=== PATIENT | female | born 1945 | race Caucasian/White ===

== ENCOUNTER 2017-07-07 09:01 | Emergency (ER) | payer BC ==
--- NOTE | 2017-07-07 09:31 | ED Physician Documentation ---
History of Present Illness - Stated complaint Stated Complaint: CAN'T SWALLOW, LUMP/BRUISE ON NECK,R CHEST SORE - Chief complaint Chief Complaint: Heent - History obtained from History obtained from: Patient, Family - History of Present Illness Timing: How many days ago (3) - Additonal information Additional information: 71 y/o female in her usual good state of health has developed some trouble swallowing with pain low in the neck 3 days ago. She noted a swelling in her neck/anterior chest yesterday and this is smaller today and there is bruising present in the skin. She has no history of trauma. She denies fever cough or shortness of breath. She did have a headache the day prior to the onset of symptoms but she did not have to take her migraine medication. She has been able to swallow water but she did not take her pills and has not eaten food in the past 2 days. It hurts to swallow food. She is able to move her arms without causing pain but it hurts in her chest to roll over in bed. Review of Systems Constitutional: denies: Fever, Chills, Myalgias, Fatigue, Weight Loss, Sweats Eyes: denies: Decreased vision Ears: denies: Ear pain Nose: denies: Rhinorrhea / runny nose, Congestion Throat: reports: Sore throat. denies: Dental pain / toothache, Oral lesions / sores Cardiac: reports: Chest pain / pressure. denies: Palpitations, Pedal edema, Calf pain Respiratory: denies: Dyspnea, Cough, Wheezing GI: denies: Abdominal Pain, Abdominal Swelling, Nausea, Vomiting : denies: Dysuria, Frequency Skin: denies: Rash, Lesions Musculoskeletal: denies: Neck pain, Back pain, Extremity pain, Joint pain, Extremity swelling, Joint swelling Neurologic: reports: Headache. denies: Generalized weakness, Focal weakness, Numbness, Difficulty speaking, Confused, Altered mental status, Head injury, LOC Psychiatric: denies: Depressed PD PAST MEDICAL HISTORY - Past Surgical History Past Surgical History: Yes General: Cholecystectomy, Appendectomy, Bowel surgery /HOME HEALTH LVN: Hysterectomy - Present Medications Home Medications: Ambulatory Orders Medication Instructions Recorded Confirmed Rizatriptan Benzoate [Maxalt] 5 mg PO DAILY PRN 07/07/17 07/07/17 - Allergies Allergies/Adverse Reactions: Allergies Allergy/AdvReac Type Severity Reaction Status Date / Time No Known Drug Allergies Allergy Verified 07/07/17 09:10 - Social History Does the pt smoke?: No Smoking Status: Never smoker Does the pt drink ETOH?: Yes - Immunizations Immunizations are current?: Yes - POLST Patient has POLST: No PD ED PE NORMAL - Vitals Vital signs reviewed: Yes (hypertensive ) - General General: Alert and oriented X 3, No acute distress, Well developed/nourished - HEENT HEENT: Atraumatic, PERRL, EOMI, Ears normal, Moist mucous membranes, Pharynx benign, Dentition benign - Neck Neck: Supple, no meningeal sign, No bony TTP, No adenopathy, Other (There is a palpable swelling to the right neck over the thyroid on the right and extending into the chest. There is ecchymosis present from the thyroid to just below the clavicle medially. There is no tenderness to the anterior chest wall) - Cardiac Cardiac: RRR, No murmur - Respiratory Respiratory: No respiratory distress, Clear bilaterally - Abdomen Abdomen: Soft, Non tender, No organomegaly - Back Back: No CVA TTP, No spinal TTP - Derm Derm: Normal color, No rash - Extremities Extremities: No deformity, No edema - Neuro Neuro: Alert and oriented X 3, No motor deficit, No sensory deficit, Normal speech - Psych Psych: Normal mood, Normal affect Results - Vitals Vitals: Vital Signs - 24 hr 07/07/17 07/07/17 09:04 14:14 Temperature 36.4 C L Heart Rate 84 87 Respiratory 16 16 Rate Blood Pressure 164/89 H 142/87 H O2 Saturation 96 100 Oxygen O2 Source Room air - EKG (time done) 1000 Rate: Rate (enter#) (71) Rhythm: NSR, LAE Compare to prior EKG: Unchanged from prior EKG (04-19-16) Computer interpretation: Agree with computer - Labs Labs: Laboratory Tests 07/07/17 07/07/17 07/07/17 09:25 09:25 09:25 WBC RBC Hgb Hct MCV MCH MCHC RDW Plt Count MPV Neut # Lymph # Sac # Eos # Baso # Absolute Nucleated RBC Nucleated RBCs PT 12.6 INR 1.1 APTT 29.6 Sodium 138 Potassium 3.8 Chloride 108 Carbon Dioxide 22 Anion Gap 8.0 BUN 16 Creatinine 0.7 Estimated GFR (MDRD) 82 L Glucose 107 H Calcium 10.2 Total Bilirubin 1.1 H AST 26 ALT 26 Alkaline Phosphatase 93 Troponin I 0.04 Total Protein 7.1 Albumin 4.7 Globulin 2.4 Albumin/Globulin Ratio 2.0 Lipase 15 L Urine Color Urine Clarity Urine pH Ur Specific [place] Urine Protein Urine Glucose (UA) Urine Ketones Urine Occult Blood Urine Nitrite Urine Bilirubin Urine Urobilinogen Ur Leukocyte Esterase Ur Microscopic Review Urine Culture Comments 07/07/17 07/07/17 09:36 10:10 WBC 7.5 RBC 4.85 Hgb 13.9 Hct 41.2 MCV 84.9 MCH 28.6 MCHC 33.7 RDW 13.6 Plt Count 180 MPV 7.8 L Neut # 6.2 Lymph # 0.9 L Sac # 0.3 Eos # 0.1 Baso # 0.0 Absolute Nucleated RBC 0.00 Nucleated RBCs 0.0 PT INR APTT Sodium Potassium Chloride Carbon Dioxide Anion Gap BUN Creatinine Estimated GFR (MDRD) Glucose Calcium Total Bilirubin AST ALT Alkaline Phosphatase Troponin I Total Protein Albumin Globulin Albumin/Globulin Ratio Lipase Urine Color YELLOW Urine Clarity CLEAR Urine pH 5.5 Ur Specific [place] >=1.030 H Urine Protein NEGATIVE Urine Glucose (UA) NEGATIVE Urine Ketones 40 H Urine Occult Blood TRACE-INTA Urine Nitrite NEGATIVE Urine Bilirubin NEGATIVE Urine Urobilinogen 0.2 (NORMAL) Ur Leukocyte Esterase NEGATIVE Ur Microscopic Review NOT INDICATED Urine Culture Comments NOT INDICATED - Rads (name of study) CT chest with Radiology: Prelim report reviewed (Impression: 1. Mild right neck soft tissue thickening in the region of the right sternocleidomastoid muscle and right visceral space.Given patient's history of bruising, intramuscular hematoma is a possibility. However, recommend further evaluation with neck MRI as underlying mass is possible.), EMP read indepedently, See rad report CT neck with Radiology: Prelim report reviewed (Impression: 1. Ovoid poorly enhancing hypodense nodular soft tissue centered in the right tracheoesophageal groove posterior to otherwise normal-appearing right thyroid lobe measures 2.0 x 2.5 x 3.1 cm. Differential considerations include abnormal paraesophageal node versus atypical neurogenic tumor. Complicated diverticulum arising from the esophagus cannot be completely excluded. Hematoma is unusual but cannot be completely excluded. Parathyroid adenoma considered less likely given the lack of enhancement. Fat plane between the lesion and the thyroid gland as well as mass-effect on the posterior contour of the right thyroid lobe suggests against intrinsic thyroid lesion. Lesion appears separate from the carotid sheath laterally. Consider MRI of the soft tissue neck without and with contrast to further evaluate as clinically indicated.2. Neck soft tissue examination appear otherwise unremarkable.), EMP read indepedently, See rad report PD MEDICAL DECISION MAKING - ED course Complexity details: reviewed old records, reviewed results, re-evaluated patient , considered differential, d/w patient, d/w family ED course: 71-year-old previously well female with 3 day history of neck pain and difficulty swallowing has what appears to be a fleshy mass in the neck posterior to the thyroid and butting up against the esophagus. There is mass- effect associated with this there is no current bleeding or enhancement. The patient has a history of this mass in the neck being larger then deflating and now she has some ecchymosis associated. I suspect an atypical hematoma versus tumor. Here in the emergency department the patient is hydrated she is given 10 mg of dexamethasone intravenously and she will have follow-up with her primary for further evaluation to consider use of MR with and without contrast. The radiologist Dr. Dong called back with further thoughts with worries about ruptured parathyroid adenoma and he recommends a careful watch on her Ca++ . Departure - Departure Disposition: 01 Home, Self Care Clinical Impression: Nontraumatic hematoma of soft tissue Condition: Stable Instructions: ED Hematoma Follow-Up: Emili Sherman PA [Primary Care Provider] - Comments: Today it appears there is a mass in your neck and we were not able to specifically identify what this is from. You will need further imaging and follow-up MRI may be needed. If this is simply a hematoma the mass should shrink and resolve. Discharge Date/Time: 07/07/17 14:17
[2017-07-07 09:45] LABS: BASOPHILS % (AUTO) 0.4 %; EOSINOPHILS # (AUTO) 0.1 10^3/uL (0.0-0.7); EOSINOPHILS % (AUTO) 0.7 %; HCT - HEMATOCRIT 41.2 % (37.0-47.0); HGB - HEMOGLOBIN 13.9 g/dL (12.0-16.0); LYMPHOCYTES # (AUTO) 0.9 10^3/uL (1.5-3.5); LYMPHOCYTES % (AUTO) 11.9 %; MEAN CORPUSCULAR HEMOGLOBIN 28.6 pg (27.0-31.0); MEAN CORPUSCULAR HGB CONC 33.7 g/dL (32.0-36.0); MEAN CORPUSCULAR VOLUME 84.9 fL (81.0-99.0); MEAN PLATELET VOLUME 7.8 fL (7.9-10.8); MONOCYTES # (AUTO) 0.3 10^3/uL (0.0-1.0); MONOCYTES % (AUTO) 4.7 %; NEUTROPHILS # (AUTO) 6.2 10^3/uL (1.5-6.6); NEUTROPHILS % (AUTO) 82.3 %; RED BLOOD COUNT 4.85 10^6/uL (4.20-5.40); RED CELL DISTRIBUTION WIDTH 13.6 % (12.0-15.0); UNCORRECTED WHITE BLOOD COUNT 7.5 x10^3/uL; WHITE BLOOD COUNT 7.5 x10^3/uL (4.8-10.8)
[2017-07-07 09:49] LABS: INR 1.1 (0.8-1.2); PT - PROTHROMBIN TIME 12.6 secs (9.9-12.6)
[2017-07-07 09:56] LABS: BILIRUBIN,TOTAL 1.1 mg/dL (0.2-1.0); CALCIUM 10.2 mg/dL (8.5-10.3); CREATININE 0.7 mg/dL (0.4-1.0); POTASSIUM 3.8 mmol/L (3.5-5.0); TOTAL PROTEIN 7.1 g/dL (6.7-8.2)
[2017-07-07 09:57] LABS: PARTIAL THROMBOPLASTIN TIME 29.6 secs (24.9-33.3)
[2017-07-07 10:18] LABS: PH,URINE 5.5 PH (5.0-7.5)
[2017-07-07] MEDS ORDERED: IOPAMIDOL-300 100 ML VIAL IVP ONE ×2 (10:30→13:00)
[2017-07-07] MEDS: IOPAMIDOL-300 100 ML VIAL IVP ONE ×2 (10:38→12:51)
[2017-07-07 10:45] LABS: BILIRUBIN,URINE NEGATIVE (NEGATIVE); UA CHARGE (STRIP ONLY) YES; UR CULTURE IF IND NOT INDICATED
--- NOTE | 2017-07-07 12:09 | CT Report ---
EXAM: CT CHEST EXAM DATE: 07/07/2017 10:39 AM. CLINICAL HISTORY: Mass/bruising to the right mediastinal area. COMPARISONS: Correlation made with chest radiograph of 04/09/2014. Limited comparison made with abdom en and pelvis CT of 09/22/2014. TECHNIQUE: Routine helical CT imaging was performed through the chest. IV contrast: 80 mL Isovue 300. Reconstructions: Coronal and sagittal. In accordance with CT protocol optimization, one or more of the following dose reduction techniques w ere utilized for this exam: automated exposure control, adjustment of mA and/or KV based on patient s ize, or use of iterative reconstructive technique. FINDINGS: Lungs/Pleura: Minimal bilateral dependent atelectasis. No pleural effusion or pneumothorax. Mediastinum: Normal heart size. No pericardial effusion. No thoracic lymphadenopathy. Bilateral calcified subglandular breast implants. Bones: Severe degenerative disk disease T11-T12. Mild levocurvature of the upper thoracic spine and d extrocurvature of the lower thoracic spine. Visualized Abdomen: Mild diffuse hepatic steatosis. Other: Mild soft tissue thickening along the right neck in the region of the right sternocleidomastoi d muscle and right visceral space. The trachea is widely patent. IMPRESSION: 1. Mild right neck soft tissue thickening in the region of the right sternocleidomastoid muscle and r ight visceral space. Given patient's history of bruising, intramuscular hematoma is a possibility. Ho wever, recommend further evaluation with neck MRI as underlying mass is possible. Findings were discussed with Dr. Damon Powell by Dr. Palma Phillip at 1150 on 07/07/2017. [facility] Referring Provider Line: [phone] SITE ID: [id number]
[2017-07-07] MEDS ORDERED: SODIUM CHLORIDE 0.9% 1,000 ML IV ONE (12:39)
[2017-07-07] MEDS ORDERED: DEXAMETHASONE 10 MG/ML VIAL IVP STA (13:27)
--- NOTE | 2017-07-07 13:29 | CT Report ---
EXAM: CT SOFT TISSUE NECK EXAM DATE: 07/07/2017 12:40 PM. HISTORY: Soft tissue mass, neck Ecchymosis COMPARISONS: CT chest 07/07/2017. TECHNIQUE: Routine soft tissue neck CT protocol. IV contrast: 80 cc Isovue-370 IV. Reconstructions: C oronal and sagittal. In accordance with CT protocol optimization, one or more of the following dose reduction techniques w ere utilized for this exam: automated exposure control, adjustment of mA and/or KV based on patient s ize, or use of iterative reconstructive technique. FINDINGS: There is an ovoid, poorly enhancing hypodense (60 Hounsfield unit) soft tissue lesion centered in the right tracheoesophageal groove measuring 2.0 x 2.5 x 3.1 cm. Clear fat plane seen between the thyroi d gland anteriorly and carotid space laterally. Lack of clear fat plane between the lesion and the es ophagus medially. There is no mass effect on the esophagus. Visualized intracranial contents appear unremarkable. No midline shift, hydrocephalus or abnormal ext ra-axial collections. Limited evaluation of the arterial and dural venous sinus structures are unrema rkable. Infratemporal fossa, c2 tactical analysis technician space and parapharyngeal space appear unremarkable. Nasopharyngeal, h ypopharyngeal and oropharyngeal mucosa appear unremarkable. Larynx and hypopharynx appear unremarkabl e. Multilevel degenerative changes of the cervical spine with grade 1 anterolisthesis of C4 on C5, moder ate degenerative changes and disk space narrowing at C5-C6. No suspicious lytic or sclerotic osseous lesions. Alignment of the cervical spine and visualized thoracic spine appear unremarkable. IMPRESSION: 1. Ovoid poorly enhancing hypodense nodular soft tissue centered in the right tracheoesophageal groov e posterior to otherwise normal appearing right thyroid lobe measures 2.0 x 2.5 x 3.1 cm. Differentia l consideration includes abnormal paraesophageal node versus atypical neurogenic tumor. Complicated d iverticulum arising from the esophagus cannot be completely excluded. Hematoma is unusual but cannot be completely excluded. Parathyroid adenoma considered less likely given the lack of enhancement. Fat plane between the lesion and the thyroid gland as well as mass effect on the posterior contour of th e right thyroid lobe suggests against intrinsic thyroid lesion. Lesion appears separate from the dalal tid sheath laterally. Consider MRI of the soft tissue neck without and with contrast to further evalu ate as clinically indicated. 2. Neck soft tissue examination appear otherwise unremarkable. Findings communicated to Dr. Powell at 1325 hrs. 07/07/2017 [facility] The above findings were discussed with Dr. Powell by Dr. Agusto Dong at 13:25 hrs on 07/07/17. Referring Provider Line: [phone] SITE ID: [id number]
[2017-07-07] MEDS ORDERED: DEXAMETHASONE 10 MG/ML VIAL ONE (13:53)
[2017-07-07 14:15] VITALS: BP 142/87
== END 2017-07-07 14:17 | disposition home or self-care (01) ==
LOC: ED 09:01
DX: M79.81 Nontraumatic hematoma of soft tissue (principal)
CPT/HCPCS: 36415; 70491; 71260; 80053; 81003; 83690; 84484; 85025; 85610; 85730; 93005; 96374; 99283; 99284; Q9967; 81001; 87086

== ENCOUNTER 2017-07-17 10:00 | Outpatient (CLI) | payer BC, MEDICARE ==
[~2017-07-17 10:00] MED LIST: GADOBUTROL 7.5 MMOL/7.5 ML VIAL ONE
[2017-07-17] MEDS ORDERED: GADOBUTROL 7.5 MMOL/7.5 ML VIAL IVP ONE (10:57)
--- NOTE | 2017-07-17 13:23 | MRI Report ---
EXAM: MRI SOFT TISSUE NECK EXAM DATE: 07/17/2017 11:15 AM. CLINICAL HISTORY: 71-year-old with soft tissue neck mass as well as neck ecchymosis COMPARISON: Same day MRA neck 07/17/2017: CT neck 07/07/2017. TECHNIQUE: Multiplanar, multisequence T1-weighted and fluid-sensitive MR sequences of the neck soft t issues were performed. Other: None. IV Contrast: 7.5 cc GADAVIST. FINDINGS: Visualized Intracranial Contents: Unremarkable. Orbits: Normal. Sinuses: Visualized paranasal sinuses and mastoid air cells are clear. Pharynx : Nasopharyngeal mucosa and parapharyngeal spaces are unremarkable. There is a T2 hyperintense lesion seen within the right tonsillar pillar measuring 5 x 5 x 5 mm (CC b y TR by AP) without enhancement (series 1001 image 33). Finding likely represents cyst. The oropharyn x is otherwise normal. The hypopharynx and retropharynx appear normal. Retropharyngeal space is normal and symmetric. Airway is widely patent. Larynx: Larynx and supraglottic airway are patent without mass lesion. True vocal cords are symmetric . Oral cavity and tongue: The base of tongue is symmetric without mass lesion. Oral cavity is unremarka ble. Parotid and Submandibular Glands: Normal. Thyroid: Posterior to and abutting the right thyroid lobe is a soft tissue mass that currently measures 1.4 x 1.4 x 1.4 cm (CC by TR by AP). The soft tissue mass demonstrates predominantly intrinsic T1 signal hy pointensity within area of T1 signal hyperintensity within the right aspect of the lesion. On postcon trast sequence the lesion demonstrates heterogenous enhancement greater than the thyroid. On T2 and STIR sequence the lesion demonstrates mixed signal hyperintensity and hypointensity. The an terior aspect of the lesion demonstrates lobulated signal hyperintensity on the inferior aspect demon strates signal hypointensity. There is no definitive fat plane seen between the mass and the thyroid appears to be a definitive fat plane between the mass and the esophagus. The outer mucosal layer of the esophagus demonstrates unif orm T2 signal hypointensity. Within the posterior aspect of the left thyroid lobe is a 0.7 x 0.7 x 0.7 (cc by TR by AP thyroid lob e lesion that demonstrates enhancement similar to CT 07/07/2017. Lymph Nodes: No enlarged lymph nodes are identified in the cervical, supraclavicular, and visualized superior mediastinal regions. Soft tissues: Soft tissues are unremarkable. No mass lesion or abnormal enhancement. Vascular Structures: Unremarkable. Lung: Clear. Bones: No evidence of acute fracture or malalignment. There are mild degenerative changes. Other: None. IMPRESSION: 1. Posterior to and abutting the right thyroid lobe is a soft tissue mass that currently measures 1.4 x 1.4 x 1.4 cm (CC by TR by AP) unchanged in size from CT 07/07/2017. The mass demonstrates heteroge nous enhancement as well as heterogenous T1 and T2 signal intensity. Differential includes parathyroi d adenoma, hematoma (either into a parathyroid adenoma or from trauma), or atypical neurogenic tumor. 2. Small enhancing lesion within the left thyroid lobe measuring up to 7 mm unchanged from 07/07/2017. [facility] Referring Provider Line: [phone] SITE ID: [id number]
--- NOTE | 2017-07-17 14:03 | MRI Report ---
EXAM: MR ANGIOGRAM NECK EXAM DATE: 07/17/2017 11:06 AM. CLINICAL HISTORY: Neck mass. COMPARISON: No prior neck MRA. TECHNIQUE: Multiplanar, multisequence MRA sequences of the neck were performed. Other: None. Post-pro cessing: Multiplanar 3D MIP reconstructions. IV Contrast: Without and with 7.5 mm Gadavist. Evaluati on of arterial stenosis is based on a NASCET method of measurement. FINDINGS: The top of the aortic arch and the origins of the great vessels are patent. No evidence for acute abn ormality or focal flow limiting stenosis of the proximal segments of the subclavian arteries. The cervical internal carotid arteries are tortuous bilaterally. The mid segments of both cervical in ternal carotid arteries have a mildly nodular, irregular and possibly slightly beaded contour. This i s not associated with hemodynamically significant stenosis, focal filling defect or evidence for elev ated dissection flap. Unremarkable-appearing cervical carotid bifurcations. No other evidence for significant stenosis or a cute abnormality. No acute abnormality or focal flow limiting stenosis of the well-developed cervical vertebral arterie s. Minimal contour irregularity of the mid and distal vertebral artery V3 segments, no flow-limiting stenosis, possibly imaging artifact or mild atherosclerotic change. No evidence for high flow vascular malformation or aneurysm in the region of the thyroid gland or in the region of the mass that is separately reported in the region of the thyroid. IMPRESSION: 1. No evidence for acute abnormality or significant stenosis of the cervical vertebral or carotid art eries. 2. Mild contour irregularity of both cervical internal carotid arteries, differential includes mild s egmental atherosclerotic disease versus fibromuscular dysplasia. [facility] Referring Provider Line: [phone] SITE ID: [id number]
== END 2017-07-17 10:01 | disposition home or self-care (01) ==
LOC: DI 10:00
PROVIDERS: ATTEND Physician Assistant
DX: R22.1 Localized swelling, mass and lump, neck (principal); E07.89 Other specified disorders of thyroid; R93.1 Abnormal findings on diagnostic imaging of heart and coronary circulation
CPT/HCPCS: 70543; 70549; A9585

== ENCOUNTER 2017-07-18 10:42 | Outpatient (CLI) | payer BC ==
--- NOTE | 2017-07-18 18:50 | Ultrasound Report ---
ABDOMINAL AORTA ULTRASOUND: 07/18/2017 HISTORY: Palpable aorta. COMPARISON: CT chest 07/07/2017, CT scan abdomen and pelvis 09/22/2014. TECHNIQUE: Real-time scanning by the electrical assembly technician with saved static images reviewed. FINDINGS: Ultrasound measurements of the aorta as follows: Proximal: Sagittal plane 2.3 cm. Mid: Transverse plane 1.7 x 1.8 cm. Distal: Transverse plane 1.8 x 1.7 cm. Normal aortic caliber without identifiable plaque. Iliac arteries: Right transverse plane 1.2 x 1.2 cm, left transverse plane 1.2 x 1.3 cm. IMPRESSION: NO EVIDENCE OF ABDOMINAL AORTIC ANEURYSM BY ULTRASOUND. JOB #: [id number] EXT JOB #:[id number]
== END 2017-07-18 10:43 | disposition home or self-care (01) ==
LOC: DI 10:42
PROVIDERS: ATTEND Physician Assistant
DX: R09.89 Other specified symptoms and signs involving the circulatory and respiratory systems (principal)
CPT/HCPCS: 76706

== ENCOUNTER 2019-11-06 10:59 | Outpatient (CLI) | payer BC ==
[2019-11-06 17:45] LABS: HGB - HEMOGLOBIN 13.9 g/dL (12.0-16.0); MEAN CORPUSCULAR HEMOGLOBIN 28.6 pg (27.0-31.0); MEAN CORPUSCULAR HGB CONC 32.6 g/dL (32.0-36.0); MEAN CORPUSCULAR VOLUME 87.7 fL (81.0-99.0); MEAN PLATELET VOLUME 10.8 fL (7.9-10.8); RED BLOOD COUNT 4.86 10^6/uL (4.20-5.40); RED CELL DISTRIBUTION WIDTH 13.4 % (12.0-15.0); WHITE BLOOD COUNT 5.5 x10^3/uL (4.8-10.8)
[2019-11-06 17:59] LABS: ALBUMIN 4.1 g/dL (3.2-5.5); ALBUMIN/GLOBULIN RATIO 1.6 (1.0-2.2); BILIRUBIN,TOTAL 1.1 mg/dL (0.2-1.0); CALCIUM 10.1 mg/dL (8.5-10.3); CREATININE 0.8 mg/dL (0.4-1.0); TOTAL PROTEIN 6.6 g/dL (6.7-8.2)
== END 2019-11-06 11:00 | disposition home or self-care (01) ==
LOC: LAB.S 10:59
PROVIDERS: ATTEND Dermatology
DX: L30.9 Dermatitis, unspecified (principal); Z51.81 Encounter for therapeutic drug level monitoring; Z79.899 Other long term (current) drug therapy
CPT/HCPCS: 36415; 80053; 85027

== ENCOUNTER 2023-03-22 16:10 | Outpatient (CLI) | payer MEDICARE, OTHER | END 2023-03-22 23:59 | disposition critical access hospital (66) | LOC: EMS 16:10 | DX: R55 Syncope and collapse (principal); S00.81XA Abrasion of other part of head, initial encounter; W18.11XA Fall from or off toilet without subsequent striking against object, initial encounter; Y92.002 Bathroom of unspecified non-institutional (private) residence as the place of occurrence of the external cause | CPT/HCPCS: A0425; A0427 ==

== ENCOUNTER 2023-03-22 16:44 | Inpatient (IN) | payer MEDICARE, OTHER ==
[2023-03-22] MEDS ORDERED: SODIUM CHLORIDE 0.9% 1,000 ML IV STA (16:55)
--- NOTE | 2023-03-22 16:57 | ED Physician Documentation ---
History of Present Illness - Stated complaint Stated Complaint: SYNCOPE/FALL - History obtained from History obtained from: Patient - Additonal information Additional information: 77-year-old woman with bone and joint problems but otherwise medically very healthy. She was feeling kind of weak and dizzy this afternoon and was laying on the couch. She got up because she felt like she needed to have a bowel movement noting she did not have a bowel movement this morning. While she was sitting on the toilet she had a syncopal episode falling forward and hitting her forehead. Also mildly hurt the right knee. She does not have a headache. She is feeling okay right now. No associated chest pain or trouble breathing. PD PAST MEDICAL HISTORY - Past Surgical History Past Surgical History: Yes General: Cholecystectomy, Appendectomy, Bowel surgery /MARKET PRESIDENT: Hysterectomy - Present Medications Home Medications: Ambulatory Orders Medication Instructions Recorded Confirmed Rizatriptan Benzoate [Maxalt] 5 mg PO DAILY PRN 07/07/17 07/07/17 - Allergies Allergies/Adverse Reactions: Allergies Allergy/AdvReac Type Severity Reaction Status Date / Time No Known Drug Allergies Allergy Verified 07/07/17 09:10 - Social History Does the pt smoke?: No Smoking Status: Never smoker Does the pt drink ETOH?: Yes Does the pt have substance abuse?: No - Immunizations Immunizations are current?: Yes - POLST Patient has POLST: No PD ED PE NORMAL - Vitals Vital signs reviewed: Yes - General General: Alert and oriented X 3, No acute distress - HEENT HEENT: Other (Dry mucous membranes, significant bruising right greater than left forehead) - Neck Neck: No bony TTP - Cardiac Cardiac: RRR, No murmur - Respiratory Respiratory: No respiratory distress, Clear bilaterally - Abdomen Abdomen: Non tender, Non distended - Back Back: No CVA TTP, No spinal TTP - Derm Derm: Normal color, Warm and dry - Extremities Extremities: Other (No tenderness or limited range of motion of the right knee.) - Neuro Neuro: Alert and oriented X 3, No motor deficit, No sensory deficit, Normal speech Eye Opening: Spontaneous Motor: Obeys Commands Verbal: Oriented GCS Score: 15 Results - Vitals Vitals: Vital Signs - 24 hr 03/22/23 03/22/23 16:58 18:17 Temperature 36.6 C Heart Rate 74 66 Respiratory 17 17 Rate Blood Pressure 128/49 L 130/104 H O2 Saturation 99 100 Oxygen O2 Source Room air - EKG (time done) 1720 EKG releavant findings:: EKG personally interpreted by author of this note. Relevant findings are: Rate: Rate (enter#) (69) Rhythm: NSR [place]: Normal Intervals: Normal [place] QRS: Normal Ischemia: Normal ST segments 1918 EKG releavant findings:: EKG personally interpreted by author of this note. Relevant findings are: Rate: Rate (enter#) (78) Rhythm: NSR [place]: Normal Intervals: Normal [place] QRS: Normal Ischemia: Normal ST segments - Labs Labs: Laboratory Tests 03/22/23 03/22/23 03/22/23 17:06 17:06 17:16 WBC 6.4 RBC 3.74 L Hgb 10.0 L Hct 31.8 L MCV 85.0 MCH 26.7 L MCHC 31.4 L RDW 14.8 Plt Count 237 MPV 9.4 Neut # (Auto) 5.8 Lymph # (Auto) 0.5 L [place] # (Auto) 0.2 Eos # (Auto) 0.0 Baso # (Auto) 0.0 Absolute Nucleated RBC 0.00 Nucleated RBC % 0.0 Sodium 136 Potassium 3.6 Chloride 106 Carbon Dioxide 21 Anion Gap 9.0 BUN 16 Creatinine 0.7 Estimated GFR (MDRD) 81 L Glucose 151 H POC Whole Bld Glucose 123 H Calcium 10.0 Magnesium 2.0 Total Bilirubin 0.8 AST 22 ALT 14 Alkaline Phosphatase 101 Total Protein 6.9 Albumin 4.0 Globulin 2.9 Albumin/Globulin Ratio 1.4 03/22/23 19:20 WBC RBC Hgb Hct MCV MCH MCHC RDW Plt Count MPV Neut # (Auto) Lymph # (Auto) [place] # (Auto) Eos # (Auto) Baso # (Auto) Absolute Nucleated RBC Nucleated RBC % Sodium Potassium Chloride Carbon Dioxide Anion Gap BUN Creatinine Estimated GFR (MDRD) Glucose POC Whole Bld Glucose 128 H Calcium Magnesium Total Bilirubin AST ALT Alkaline Phosphatase Total Protein Albumin Globulin Albumin/Globulin Ratio - Rads (name of study) CT of the head and C-spine Relevant Findings:: Final report received, EMP independent interpretation of test Three-view x-ray of the right ankle demonstrates a lateral malleolus fracture Relevant Findings:: Final report received, EMP independent interpretation of test Procedures - Splint (location) - Minor rle Splint applied by: Physician Type of splint: Fiberglass, Short leg, Posterior Other: Patient tolerated well, No complications, Neurovascular intact PD Medical Decision Making - ED course ED course: 77-year-old woman had a syncopal episode and fell hitting her head. EKG, CT of the head and neck, and labs were only notable for anemia. This was discussed with the patient and family, she was noted to be anemic perioperatively around a recent right hip replacement so unclear acuity, 3 years ago she was not anemic though. She will follow-up with her doctor to discuss. Prior to discharge she noticed that her ankle was hurting. On examination she has a swollen right ankle that is tender over the lateral but not the medial malleolus. There is no proximal fibular tenderness. Will obtain x-ray. After the x-ray was obtained but just before I was able to give her results she had another syncopal episode in the room. Her friends were in the room and said her eyes rolled back and then she postured and shook a little bit and passed out. I was called into the room by the nurse. At that point she was becoming conscious again. Repeat EKG and blood sugar were done without pertinent positive findings. Given that she has had 2 episodes of syncope today now we will place her in observation. Note that she was not on the monitor when this happened so it is unclear if she had an arrhythmia. sPOKE WITH TELE-HOSPITALIST AT 7:50 FOR OBS Departure - Departure Disposition: ED Place in Observation Clinical Impression: Syncope Qualifiers: Syncope type: unspecified Qualified Code(s): R55 - Syncope and collapse Head injury Qualifiers: Encounter type: initial encounter Qualified Code(s): S09.90XA - Unspecified injury of head, initial encounter Anemia Qualifiers: Anemia type: unspecified type Qualified Code(s): D64.9 - Anemia, unspecified Closed right ankle fracture Qualifiers: Encounter type: initial encounter Qualified Code(s): S82.891A - Other fracture of right lower leg, initial encounter for closed fracture Condition: Serious Record reviewed to determine appropriate education?: Yes Instructions: ED Head Injury Closed, ED Fainting Unkn Cause Comments: You are seen today for an episode of passing out associated with a head injury. No serious findings were identified. CAT scan of the head and neck were normal. EKG unremarkable. We did find that you are anemic which as you mentioned was noted when you had your hip surgery but please follow-up with your primary care physician to discuss. Return for new or worsening symptoms. I do anticipate you will get significant bruising of the face from the injuries.
[2023-03-22 17:10] LABS: BASOPHILS % (AUTO) 0.3 %; EOSINOPHILS % (AUTO) 0.3 %; HCT - HEMATOCRIT 31.8 % (37.0-47.0); LYMPHOCYTES # (AUTO) 0.5 10^3/uL (1.5-3.5); MEAN CORPUSCULAR HEMOGLOBIN 26.7 pg (27.0-31.0); MEAN CORPUSCULAR HGB CONC 31.4 g/dL (32.0-36.0); MEAN PLATELET VOLUME 9.4 fL (7.9-10.8); MONOCYTES # (AUTO) 0.2 10^3/uL (0.0-1.0); MONOCYTES % (AUTO) 2.3 %; NEUTROPHILS # (AUTO) 5.8 10^3/uL (1.5-6.6); NEUTROPHILS % (AUTO) 89.6 %; PLT - PLATELET COUNT 237 10^3/uL (130-450); RED BLOOD COUNT 3.74 10^6/uL (4.20-5.40); RED CELL DISTRIBUTION WIDTH 14.8 % (12.0-15.0); WHITE BLOOD COUNT 6.4 x10^3/uL (4.8-10.8)
[2023-03-22 17:22] LABS: ALBUMIN/GLOBULIN RATIO 1.4 (1.0-2.2); BILIRUBIN,TOTAL 0.8 mg/dL (0.2-1.0); CREATININE 0.7 mg/dL (0.4-1.0); POTASSIUM 3.6 mmol/L (3.5-5.0); TOTAL PROTEIN 6.9 g/dL (6.7-8.2)
--- NOTE | 2023-03-22 18:10 | CT Report ---
PROCEDURE: HEAD WO INDICATIONS: Fall, head injury TECHNIQUE: Noncontrast 4.5 mm thick angled axial sections acquired from the foramen magnum to the vertex. For r adiation dose reduction, the following was used: automated exposure control, adjustment of mA and/or kV according to patient size. COMPARISON: None. FINDINGS: Image quality: Excellent. CSF spaces: Basal cisterns are patent. No extra-axial fluid collections. Ventricles are normal in size and shape. Brain: No midline shift. No intracranial masses or hemorrhage. No area of hypodensity in a vascula r distribution to suggest acute infarction. There is periventricular hypodensity consistent with lunchroom aide jasen microvascular ischemic disease. Age-related parenchymal loss. Skull and face: Calvarium and visualized facial bones are intact, without suspicious lesions. Small right frontal scalp hematoma. Sinuses: Visualized sinuses and mastoids are clear. IMPRESSION: No acute intracranial abnormality. Small right frontal scalp hematoma. Reviewed by: Lan Pedroza MD on 03/22/2023 6:09 PM PDT Approved by: Lan Pedroza MD on 03/22/2023 6:09 PM PDT Station ID: [id number]
--- NOTE | 2023-03-22 18:21 | CT Report ---
PROCEDURE: CERVICAL SPINE WO INDICATIONS: Fall, head injury TECHNIQUE: Noncontrast 3 mm thick sections acquired from the skull base to the T4 level. Sagittal and coronal r eformats were then constructed. For radiation dose reduction, the following was used: automated exp osure control, adjustment of mA and/or kV according to patient size. COMPARISON: None. FINDINGS: Image quality: Excellent. Bones: No fractures or dislocations. Moderate degenerative change in the cervical spine. Visualized superior ribs are intact. Soft tissues: Mucosal thickening at the right sphenoid sinus. Prevertebral soft tissues are normal in thickness. No paravertebral hematomas. No apical pneumothoraces. Bilateral pleural apical scarring . IMPRESSION: No acute osseous abnormality. Reviewed by: Lan Pedroza MD on 03/22/2023 6:20 PM PDT Approved by: Lan Pedroza MD on 03/22/2023 6:20 PM PDT Station ID: [id number]
--- NOTE | 2023-03-22 19:51 | XRAY Report ---
PROCEDURE: Ankle 3 View RT INDICATIONS: ankle inj TECHNIQUE: 3 views of the ankle were acquired. COMPARISON: None. FINDINGS: Bones: Acute mildly displaced fracture of the lateral malleolus with fracture plane at the level of the tibial plafond. No substantial mortise malalignment identified Soft tissues: Probable tibiotalar joint effusion. IMPRESSION: Acute lateral malleolus fracture Reviewed by: Shyam Santo MD on 03/22/2023 7:50 PM PDT Approved by: Shyam Santo MD on 03/22/2023 7:50 PM PDT Station ID: [id number]
--- NOTE | 2023-03-22 20:36 | HISTORY & PHYSICAL EXAMINATION ---
Chief Complaint - Chief Complaint Chief Complaint: syncope History of Present Illness - Admitted From Admitted From:: home - History Obtained From Exam Limitations: telemedicine - History of Present Illness HPI Comment/Other: Ms Tay is a 77 yo F with hx hip and knee replacements, recent R hip revision Feb 18, 2023. Uses walker. No other chronic medical problems, takes low dose ASA twice daily after hip revision, no other home medications. Presents to ER for further evaluation of syncopal episode. Pt reports she felt weak and dizzy this afternoon, went to bathroom for BM, passed out while on the toilet and hit her forehead. Unwitnessed, unsure how long she was unconscious for at that time. She was stuck under the cabinet and had a hard time getting out, which is how she thinks she injured her ankle. While in ER she had an observed episode of syncope, possible seizure, her eyes rolled back, shook, passed out, regained consciousness within a couple of minutes. Patient states she felt completely disoriented afterwards briefly. Currently no complaints except that she is feeling very cold. Denies abd pain, n/v. Noticed a small spot of blood when wiping after BM today, states she was prescribed stool softener post op but just stopped taking it due to runny stools. Denies blood in stool or in toilet bowl. Denies hematuria. She took oxycodone for 2 days post op, never took the tramadol that was prescribed. No alcohol use. 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 denies: Poor appetite - Eyes Eyes: reports: Blurred vision (chronic related to cataract surgery). denies: Spots in vision - Ears, Nose & Throat Ears, Nose & Throat: denies: Nosebleeds - Cardiovascular Cariovascular: reports: Syncope. denies: Palpitations, Chest pain - Respiratory Respiratory: denies: Cough, Sputum production - Gastrointestinal Gastrointestinal: reports: Other (spot of blood with wiping today, stopped stool softeners due to diarrhea) - Genitourinary Genitourinary: denies: Dysuria, Frequency, Hematuria - Integumentary Integumentary: denies: Rash, Pruritis - Neurological Neurological: reports: General weakness. denies: Focal weakness, Headache, Dizziness - Psychiatric Psychiatric: denies: Depression, Anxiety - Hematologic/Lymphatic Hematologic/Lymphatic: reports: Anemia - All Other Systems All Other Systems: reports: Reviewed and negative Prior Level of Functionality: ambulates with walker Exam - Vital Signs Reviewed Vital Signs: Yes Vital Signs: Vital Signs x48h Temp Pulse Resp BP Pulse Ox 03/22/23 18:17 66 17 130/104 H 100 03/22/23 16:58 36.6 C 74 17 128/49 L 99 - Physical Exam General Appearance: positive: No acute distress (appears fatigued, elderly) Eyes Bilateral: positive: Normal inspection ENT: positive: ENT inspection nml Neck: positive: Nml inspection Respiratory: positive: No respiratory distress Cardiovascular: positive: Regular rate & rhythm Skin: positive: Color nml, No rash Extremities: positive: Joint swelling (R ankle splint) Neurologic/Psychiatric: positive: Oriented x3. negative: Mood/affect nml (flat affect) Conclusion/Plan - Lab Results Lab results reviewed: Yes Fish Bones: 03/22/23 17:06 03/22/23 17:06 - Diagnostic Imaging Results Diagnostic Imaging Results: positive: Final report reviewed - EKG Results EKG Interpreted Independently: Yes EKG Comparison: No prior EKG - Other Other Results/Comments: Assessment/Plan: Syncopal episode -First episode at home while on commode, unwitnessed, unknown duration of LOC -Second episode in ER, associated with possible shaking per friend at bedside, ?seizure, unconscious ~1 min -CT head/neck no acute intracranial abnormalities, R forehead hematoma -EKG NSR -air sampling and monitoring -Seizure precautions -Echocardiogram Right lateral malleolus fracture -Splinted by ER provider - rec NWB and outpatient orthopedics follow up -PT/OT consults Anemia, normocytic -Hgb 10 -Pt reports spot of blood with wiping today in setting of constipation, likely hemorrhoids, recently stopped stool softeners -Repeat H&H in a.m. -F/u B12, folate, iron studies Full code - pt would like more information regarding advanced directives/POLST, consult to social work placed DVT ppx: Lovenox sc Telemedicine Consult Details - Provider Location & Consult Time Telemedicine consultation conducted via videoconferencing?: Yes List names and roles of persons who participated in consult:: Arnold Crain MD, patient + patient's friend at bedside Telemedicine provider location:: [place]
[2023-03-22] MEDS ORDERED: SODIUM CHLORIDE FLUSH 0.9% 10 ML SYRINGE IVP PRN (21:04)
[2023-03-22] MEDS ORDERED: ONDANSETRON 4 MG/2 ML VIAL IVP PRN (21:04)
[2023-03-22 21:31] LABS: % IRON SATURATION 12 % (20-50); IRON 31 ug/dL (28-170); TOTAL IRON BINDING CAPACITY 263 ug/dL (250-450); TRANSFERRIN 188 mg/dL (192-382)
[2023-03-22 21:52] LABS: FOLATE 10.82 ng/mL (5.90 - >24.8)
[2023-03-22] MEDS: levETIRAcetam 250 MG TABLET PO SCH (22:58)
[2023-03-22] MEDS: ACETAMINOPHEN 325 MG TABLET PO PRN (23:20)
[2023-03-23] MEDS: SODIUM CHLORIDE FLUSH 0.9% 10 ML SYRINGE IVP SCH ×4 (00:40→20:57)
[2023-03-23 05:57] LABS: BASOPHILS % (AUTO) 0.6 %; EOSINOPHILS % (AUTO) 0.8 %; HCT - HEMATOCRIT 27.6 % (37.0-47.0); HGB - HEMOGLOBIN 8.6 g/dL (12.0-16.0); LYMPHOCYTES % (AUTO) 19.9 %; MEAN CORPUSCULAR HEMOGLOBIN 26.6 pg (27.0-31.0); MEAN CORPUSCULAR HGB CONC 31.2 g/dL (32.0-36.0); MEAN CORPUSCULAR VOLUME 85.4 fL (81.0-99.0); MEAN PLATELET VOLUME 9.9 fL (7.9-10.8); MONOCYTES # (AUTO) 0.4 10^3/uL (0.0-1.0); MONOCYTES % (AUTO) 7.8 %; NEUTROPHILS # (AUTO) 3.6 10^3/uL (1.5-6.6); NEUTROPHILS % (AUTO) 70.7 %; PLT - PLATELET COUNT 199 10^3/uL (130-450); RED BLOOD COUNT 3.23 10^6/uL (4.20-5.40); RED CELL DISTRIBUTION WIDTH 14.9 % (12.0-15.0); WHITE BLOOD COUNT 5.1 x10^3/uL (4.8-10.8)
[2023-03-23 06:04] LABS: CALCIUM 9.7 mg/dL (8.5-10.3); CREATININE 0.6 mg/dL (0.4-1.0); POTASSIUM 3.7 mmol/L (3.5-5.0)
[2023-03-23] MEDS ORDERED: GADOBUTROL 7.5 MMOL/7.5 ML VIAL ONE (07:54)
[2023-03-23 07:57] LABS: BASOPHILS % (AUTO) 0.6 %; EOSINOPHILS # (AUTO) 0.1 10^3/uL (0.0-0.7); EOSINOPHILS % (AUTO) 1.3 %; HCT - HEMATOCRIT 27.7 % (37.0-47.0); HGB - HEMOGLOBIN 8.8 g/dL (12.0-16.0); LYMPHOCYTES # (AUTO) 0.9 10^3/uL (1.5-3.5); LYMPHOCYTES % (AUTO) 16.9 %; MEAN CORPUSCULAR HEMOGLOBIN 26.9 pg (27.0-31.0); MEAN CORPUSCULAR HGB CONC 31.8 g/dL (32.0-36.0); MEAN CORPUSCULAR VOLUME 84.7 fL (81.0-99.0); MEAN PLATELET VOLUME 9.2 fL (7.9-10.8); MONOCYTES # (AUTO) 0.4 10^3/uL (0.0-1.0); MONOCYTES % (AUTO) 7.3 %; NEUTROPHILS % (AUTO) 73.7 %; PLT - PLATELET COUNT 193 10^3/uL (130-450); RED BLOOD COUNT 3.27 10^6/uL (4.20-5.40); RED CELL DISTRIBUTION WIDTH 14.9 % (12.0-15.0); WHITE BLOOD COUNT 5.4 x10^3/uL (4.8-10.8)
[2023-03-23] MEDS: ACETAMINOPHEN 325 MG TABLET PO PRN (08:13)
[2023-03-23 08:37] LABS: INR 1.2 (0.8-1.2); PT - PROTHROMBIN TIME 13.2 secs (9.9-12.6)
[2023-03-23 08:44] LABS: PARTIAL THROMBOPLASTIN TIME 27.1 secs (24.9-33.3)
[2023-03-23] MEDS: levETIRAcetam 250 MG TABLET PO SCH ×2 (08:51→20:57)
[2023-03-23] MEDS: PANTOPRAZOLE 40 MG VIAL IVP SCH ×2 (08:51→20:57)
[2023-03-23] MEDS ORDERED: ENOXAPARIN 40 MG/0.4 ML SYRINGE SUBQ SCH (09:00)
[2023-03-23] MEDS: polyethylene glycoL 3350 17 GM PACKET PO SCH (11:02)
--- NOTE | 2023-03-23 11:45 | PROVIDER PROGRESS NOTE ---
Assessment/Plan - Problem List (1) Syncope Qualifiers: Syncope type: unspecified Qualified Code(s): R55 - Syncope and collapse Assessment/Plan: -First episode at home while on commode, unwitnessed, unknown duration of LOC -Second episode in ER, associated with possible shaking per friend at bedside, ?seizure, unconscious ~1 min -CT head/neck no acute intracranial abnormalities, R forehead hematoma -EKG NSR -monitoring analyst -Seizure precautions -Echocardiogram -MRI with and without contrast of head ordered Possible acute seizure, present on admission -Patient has no history of seizures -Questionable seizure activity while in the emergency room was observed -Patient was started on Keppra dosing -MRI brain seizure protocol ordered -Seizure precautions Right lateral malleolus fracture -Splinted by ER provider - rec NWB and outpatient orthopedics follow up -PT/OT consults Anemia, normocytic -Hgb 10 -Pt reports spot of blood with wiping today in setting of constipation, likely hemorrhoids, recently stopped stool softeners -Repeat H&H in a.m. -F/u B12, folate, iron studies -Iron studies did reveal low saturation. Patient does not know when her previous hemoglobin hematocrit was checked and last was normal in 2017 per records - will evaluate for possible active bleeding. May just be due to hydration given in the ER. - will initiate IV Protonix but patient will have ability to eat -Check serial hemoglobin hematocrit -Guaiac stool Full code - pt would like more information regarding advanced directives/POLST, consult to social work placed - Current Meds Current Meds: Current Medications Generic Name Dose Route Start Last Admin Trade Name Maico PRN Reason Stop Dose Admin Levetiracetam 500 mg 03/22/23 23:00 03/23/23 08:51 Levetiracetam 250 Mg Tablet PO 500 mg BID GURWINDER Administration Pantoprazole Sodium 40 mg 03/23/23 09:00 03/23/23 08:51 Pantoprazole 40 Mg Vial IVP 40 mg BID GURWINDER Administration Polyethylene Glycol 17 gm 03/23/23 11:00 03/23/23 11:02 Polyethylene Glycol 3350 17 Gm Packet PO 17 gm DAILY GURWINDER Administration Sodium Chloride 10 ml 03/23/23 01:00 03/23/23 08:51 Sodium Chloride Flush 0.9% 10 Ml Syringe IVP 10 ml 0100,0900,1700 GURWINDER Administration - Lab Result Fish Bone Diagrams: 03/23/23 07:46 03/23/23 05:20 - Additional Planning My Orders: My Active Orders 03/23/23 Guaiac [OCCULT BLOOD IN PAT. SINGLE] [RAPID] Routine 03/23/23 07:20 BRAIN W/WO [MRI] Routine 03/23/23 07:23 SCDs [RC] QSHIFT 03/23/23 07:24 Miscellaenous Nursing Order [RC] ONCE 03/23/23 09:00 Pantoprazole [Protonix] 40 mg IVP BID 03/23/23 11:00 polyethylene glycoL 3350 [Miralax] 17 gm PO DAILY 03/23/23 11:18 Acetaminophen [Tylenol] 1,000 mg PO Q4HR PRN 03/23/23 12:00 HEMOGLOBIN AND HEMATOCRIT [HEME] Timed 03/23/23 13:30 CBC - COMP BLD CT W/AUTO DIFF [HEME] Q6H 03/23/23 19:30 CBC - COMP BLD CT W/AUTO DIFF [HEME] Q6H 03/24/23 01:30 CBC - COMP BLD CT W/AUTO DIFF [HEME] Q6H Subjective - Subjective Patient Reports: Other (Patient this morning is feeling fine. Denies any lightheadedness. She notes she was feeling fine all day long until she went to use the toilet urinated and then was trying to have a bowel movement and felt lightheaded and passed out. She does not recall for how long. She did have her phone which) Objective Vital Signs: Vital Signs - 24 hr 03/22/23 03/22/23 03/22/23 16:58 18:17 21:00 Temperature 36.6 C 36.7 C Heart Rate 74 66 67 Heart Rate [ Brachial] Heart Rate [ Monitoring electrodes] Respiratory 17 17 19 Rate Blood Pressure 128/49 L 130/104 H 134/70 H Blood Pressure [Brachial artery] O2 Saturation 99 100 95 03/22/23 03/23/23 03/23/23 22:07 02:17 05:30 Temperature 36.5 C 36.8 C 36.9 C Heart Rate Heart Rate [ 74 Brachial] Heart Rate [ 70 70 Monitoring electrodes] Respiratory 16 20 16 Rate Blood Pressure Blood Pressure 126/54 L 104/48 L 110/52 L [Brachial artery] O2 Saturation 97 97 97 03/23/23 08:00 Temperature 36.9 C Heart Rate Heart Rate [ 69 Brachial] Heart Rate [ Monitoring electrodes] Respiratory 16 Rate Blood Pressure Blood Pressure 109/50 L [Brachial artery] O2 Saturation 94 Oxygen O2 Source Room air I&O (Last 24 Hrs): Intake and Output Totals x24h 03/21/23 03/22/23 03/23/23 23:59 23:59 23:59 Intake Total 1100 120 Output Total 775 Balance 1100 -655 General: Alert, Oriented x3 HEENT: PERRLA, EOMI, Other (Has a contusion of the right forehead) Neck: Supple Neuro: Alert, Oriented Times 3 Cardiovascular: Regular rate, Normal S1, Normal S2 Respiratory: No respiratory distress Abdomen: Soft Extremities: Other (Right leg is splinted left leg shows no edema) Skin: No rashes - Results Results: Laboratory Results WBC 5.4 x10^3/uL (4.8-10.8) 03/23/23 07:46 RBC 3.27 10^6/uL (4.20-5.40) L 03/23/23 07:46 Hgb 8.8 g/dL (12.0-16.0) L 03/23/23 07:46 Hct 27.7 % (37.0-47.0) L 03/23/23 07:46 MCV 84.7 fL (81.0-99.0) 03/23/23 07:46 MCH 26.9 pg (27.0-31.0) L 03/23/23 07:46 MCHC 31.8 g/dL (32.0-36.0) L 03/23/23 07:46 RDW 14.9 % (12.0-15.0) 03/23/23 07:46 Plt Count 193 10^3/uL (130-450) 03/23/23 07:46 MPV 9.2 fL (7.9-10.8) 03/23/23 07:46 Neut # (Auto) 4.0 10^3/uL (1.5-6.6) 03/23/23 07:46 Lymph # (Auto) 0.9 10^3/uL (1.5-3.5) L 03/23/23 07:46 [place] # (Auto) 0.4 10^3/uL (0.0-1.0) 03/23/23 07:46 Eos # (Auto) 0.1 10^3/uL (0.0-0.7) 03/23/23 07:46 Baso # (Auto) 0.0 10^3/uL (0.0-0.1) 03/23/23 07:46 Absolute Nucleated RBC 0.00 x10^3/uL 03/23/23 07:46 Nucleated RBC % 0.0 /100WBC 03/23/23 07:46 PT 13.2 secs (9.9-12.6) H 03/23/23 07:46 INR 1.2 (0.8-1.2) 03/23/23 07:46 APTT 27.1 secs (24.9-33.3) 03/23/23 07:46 Sodium 140 mmol/L (135-145) 03/23/23 05:20 Potassium 3.7 mmol/L (3.5-5.0) 03/23/23 05:20 Chloride 112 mmol/L (101-111) H 03/23/23 05:20 Carbon Dioxide 22 mmol/L (21-32) 03/23/23 05:20 Anion Gap 6.0 (6-13) 03/23/23 05:20 BUN 16 mg/dL (6-20) 03/23/23 05:20 Creatinine 0.6 mg/dL (0.4-1.0) 03/23/23 05:20 Estimated GFR (MDRD) 96 (>89) 03/23/23 05:20 Glucose 104 mg/dL (70-100) H 03/23/23 05:20 POC Whole Bld Glucose 128 mg/dL (70 - 100) H 03/22/23 19:20 Calcium 9.7 mg/dL (8.5-10.3) 03/23/23 05:20 Magnesium 2.0 mg/dL (1.7-2.8) 03/22/23 17:06 Iron 31 ug/dL (28-170) 03/22/23 17:06 TIBC 263 ug/dL (250-450) 03/22/23 17:06 % Saturation 12 % (20-50) L 03/22/23 17:06 Transferrin 188 mg/dL (192-382) L 03/22/23 17:06 Total Bilirubin 0.8 mg/dL (0.2-1.0) 03/22/23 17:06 AST 22 IU/L (10-42) 03/22/23 17:06 ALT 14 IU/L (10-60) 03/22/23 17:06 Alkaline Phosphatase 101 IU/L (42-121) 03/22/23 17:06 Troponin I High Sens 5.6 ng/L (2.3-14.8) 03/23/23 07:46 Total Protein 6.9 g/dL (6.7-8.2) 03/22/23 17:06 Albumin 4.0 g/dL (3.2-5.5) 03/22/23 17:06 Globulin 2.9 g/dL (2.1-4.2) 03/22/23 17:06 Albumin/Globulin Ratio 1.4 (1.0-2.2) 03/22/23 17:06 Vitamin B12 338 pg/mL (180-914) 03/22/23 17:06 Folate 10.82 ng/mL (5.90 - >24.8) 03/22/23 17:06 Blood Type O POSITIVE 03/23/23 07:46 Blood Type Recheck O POSITIVE 03/23/23 05:20 Antibody Screen NEGATIVE 03/23/23 07:46 ABX Reporting Has patient been on IV antibiotics over the past 48 hours?: No
[2023-03-23] MEDS ORDERED: GADOBUTROL 7.5 MMOL/7.5 ML VIAL IVP ONE (11:46)
[2023-03-23 12:55] LABS: BASOPHILS % (AUTO) 0.6 %; EOSINOPHILS # (AUTO) 0.1 10^3/uL (0.0-0.7); EOSINOPHILS % (AUTO) 1.8 %; HCT - HEMATOCRIT 28.2 % (37.0-47.0); HGB - HEMOGLOBIN 8.9 g/dL (12.0-16.0); LYMPHOCYTES % (AUTO) 19.6 %; MEAN CORPUSCULAR HEMOGLOBIN 27.1 pg (27.0-31.0); MEAN CORPUSCULAR HGB CONC 31.6 g/dL (32.0-36.0); MEAN CORPUSCULAR VOLUME 85.7 fL (81.0-99.0); MEAN PLATELET VOLUME 9.2 fL (7.9-10.8); MONOCYTES # (AUTO) 0.3 10^3/uL (0.0-1.0); NEUTROPHILS # (AUTO) 3.7 10^3/uL (1.5-6.6); NEUTROPHILS % (AUTO) 71.6 %; PLT - PLATELET COUNT 195 10^3/uL (130-450); RED BLOOD COUNT 3.29 10^6/uL (4.20-5.40); WHITE BLOOD COUNT 5.1 x10^3/uL (4.8-10.8)
--- NOTE | 2023-03-23 13:09 | MRI Report ---
PROCEDURE: BRAIN W/WO INDICATIONS: syncope,possible seizure CONTRAST: GADAVIST 7.3 ML TECHNIQUE: Noncontrast axial T1 spin echo, axial T2 fast spin echo, sagittal and axial FLAIR, coronal T2 fast sp in echo, axial gradient echo, axial diffusion and ADC through the brain. After the administration of contrast, axial and coronal T1 spin echo with fat saturation through the brain. COMPARISON: Correlation made to CT head 03/22/2023 FINDINGS: Image quality: Excellent. CSF spaces: Basal cisterns are patent. No extra-axial fluid collections. Ventricles are normal in size and shape. Brain: No midline shift. No intracranial bleeds or masses. No abnormal intracranial enhancement. There is cerebral volume loss for age. There is minimal periventricular white matter chronic small v essel ischemic change. The brainstem appears normal. Diffusion-weighted images demonstrate no acute ischemic insults. No chronic ischemic insults. Normal intravascular flow voids are present. Skull and face: Calvarial marrow is normal in signal. Orbits appear normal. Sinuses: Small air-fluid level in the right sphenoid sinus. Sinuses and mastoids appear otherwise cl ear. IMPRESSION: 1. No MR evidence of acute process. Reviewed by: Bria Tomas MD on 03/23/2023 12:08 PM ALEJANDRO Approved by: Bria Tomas MD on 03/23/2023 12:08 PM ALEJANDRO Station ID: [id number]
--- NOTE | 2023-03-23 13:23 | PHARMACY PROGRESS NOTE ---
- Best Possible Medication History Admit Date and Time: 03/23/23 1010 Processed by: Pharmacy Medication History completed: Yes Patient Interview: Completed Secondary Source(s): Pharmacy records, Insurance records As the person ultimately responsible for medication therapy, providers are able to order a medication from an existing home medication list in [facility] via the "Reconcile Routine" prior to Confirmation of that medication by production support developer. Such practice is discouraged except when the physician, in their clinical judgment, deems that a medical need exists for a medication without regard to previous use.
[2023-03-23] MEDS: ACETAMINOPHEN 500 MG TABLET PO PRN ×3 (13:27→22:42)
[2023-03-23 19:32] LABS: BASOPHILS % (AUTO) 0.8 %; EOSINOPHILS # (AUTO) 0.2 10^3/uL (0.0-0.7); EOSINOPHILS % (AUTO) 3.3 %; HCT - HEMATOCRIT 27.7 % (37.0-47.0); HGB - HEMOGLOBIN 8.8 g/dL (12.0-16.0); LYMPHOCYTES # (AUTO) 1.5 10^3/uL (1.5-3.5); LYMPHOCYTES % (AUTO) 30.3 %; MEAN CORPUSCULAR HEMOGLOBIN 27.1 pg (27.0-31.0); MEAN CORPUSCULAR HGB CONC 31.8 g/dL (32.0-36.0); MEAN CORPUSCULAR VOLUME 85.2 fL (81.0-99.0); MEAN PLATELET VOLUME 9.2 fL (7.9-10.8); MONOCYTES # (AUTO) 0.3 10^3/uL (0.0-1.0); MONOCYTES % (AUTO) 6.1 %; NEUTROPHILS # (AUTO) 2.9 10^3/uL (1.5-6.6); NEUTROPHILS % (AUTO) 59.3 %; PLT - PLATELET COUNT 202 10^3/uL (130-450); RED BLOOD COUNT 3.25 10^6/uL (4.20-5.40); WHITE BLOOD COUNT 4.9 x10^3/uL (4.8-10.8)
[2023-03-24] MEDS: traMADol 50 MG TABLET PO PRN ×3 (01:30→21:22)
[2023-03-24 01:36] LABS: EOSINOPHILS # (AUTO) 0.2 10^3/uL (0.0-0.7); HCT - HEMATOCRIT 27.1 % (37.0-47.0); HGB - HEMOGLOBIN 8.4 g/dL (12.0-16.0); LYMPHOCYTES # (AUTO) 1.3 10^3/uL (1.5-3.5); LYMPHOCYTES % (AUTO) 31.1 %; MEAN CORPUSCULAR HEMOGLOBIN 26.7 pg (27.0-31.0); MONOCYTES # (AUTO) 0.3 10^3/uL (0.0-1.0); MONOCYTES % (AUTO) 6.2 %; NEUTROPHILS # (AUTO) 2.4 10^3/uL (1.5-6.6); NEUTROPHILS % (AUTO) 56.5 %; PLT - PLATELET COUNT 177 10^3/uL (130-450); RED BLOOD COUNT 3.15 10^6/uL (4.20-5.40); RED CELL DISTRIBUTION WIDTH 15.2 % (12.0-15.0); WHITE BLOOD COUNT 4.2 x10^3/uL (4.8-10.8)
[2023-03-24 05:50] LABS: BASOPHILS % (AUTO) 0.6 %; EOSINOPHILS # (AUTO) 0.2 10^3/uL (0.0-0.7); EOSINOPHILS % (AUTO) 4.8 %; HCT - HEMATOCRIT 26.8 % (37.0-47.0); HGB - HEMOGLOBIN 8.5 g/dL (12.0-16.0); LYMPHOCYTES # (AUTO) 1.1 10^3/uL (1.5-3.5); LYMPHOCYTES % (AUTO) 31.9 %; MEAN CORPUSCULAR HEMOGLOBIN 27.3 pg (27.0-31.0); MEAN CORPUSCULAR HGB CONC 31.7 g/dL (32.0-36.0); MEAN CORPUSCULAR VOLUME 86.2 fL (81.0-99.0); MEAN PLATELET VOLUME 8.9 fL (7.9-10.8); MONOCYTES # (AUTO) 0.3 10^3/uL (0.0-1.0); MONOCYTES % (AUTO) 8.5 %; NEUTROPHILS # (AUTO) 1.9 10^3/uL (1.5-6.6); NEUTROPHILS % (AUTO) 53.9 %; PLT - PLATELET COUNT 174 10^3/uL (130-450); RED BLOOD COUNT 3.11 10^6/uL (4.20-5.40); RED CELL DISTRIBUTION WIDTH 15.3 % (12.0-15.0); WHITE BLOOD COUNT 3.5 x10^3/uL (4.8-10.8)
[2023-03-24] MEDS: polyethylene glycoL 3350 17 GM PACKET PO SCH (08:26)
[2023-03-24] MEDS: levETIRAcetam 250 MG TABLET PO SCH ×2 (08:27→21:22)
[2023-03-24] MEDS: ACETAMINOPHEN 500 MG TABLET PO PRN (08:27)
[2023-03-24] MEDS: SENNA 8.6 MG TABLET PO SCH (08:27)
[2023-03-24] MEDS: ASCORBIC ACID 500 MG TABLET PO SCH ×2 (08:28→17:22)
[2023-03-24] MEDS: FERROUS SULFATE 325 MG TABLET PO SCH ×2 (08:28→17:22)
[2023-03-24] MEDS: SODIUM CHLORIDE FLUSH 0.9% 10 ML SYRINGE IVP SCH ×2 (08:28→17:23)
[2023-03-24] MEDS: PANTOPRAZOLE 40 MG TABLET PO SCH (08:29)
--- NOTE | 2023-03-24 14:00 | PROVIDER PROGRESS NOTE ---
Assessment/Plan - Problem List (1) Syncope Qualifiers: Syncope type: unspecified Qualified Code(s): R55 - Syncope and collapse Assessment/Plan: Syncope type: unspecified Qualified Code(s): R55 - Syncope and collapse Assessment/Plan: -First episode at home while on commode, unwitnessed, unknown duration of LOC -Second episode in ER, associated with possible shaking per friend at bedside, ?seizure, unconscious ~1 min -CT head/neck no acute intracranial abnormalities, R forehead hematoma -EKG NSR -youth nutritional monitor -Seizure precautions -Echocardiogram -MRI with and without contrast of head orderedAnd revealed no acute findings March 24, 2023-no clear etiology for syncope at this time. Echocardiogram is pending. MRI with and without contrast of head revealed no acute abnormalities. Orthostatic blood pressure and pulse with supine, sitting and standing position did not reveal any significant abnormalities. Possible acute seizure, present on admission -Patient has no history of seizures -Questionable seizure activity while in the emergency room was observed -Patient was started on Keppra dosing -MRI brain seizure protocol orderedAnd revealed no acute findings -Seizure precautions March 24, 2023-MRI brain seizure protocol revealed no acute abnormalities. No episodes while in the hospital. Patient will continue with Keppra dosing that she was started on at admission. Recommend outpatient follow-up. Right lateral malleolus fracture -Splinted by ER provider - rec NWB and outpatient orthopedics follow up -PT/OT consults March 24, 2023-patient is to follow-up with her outpatient orthopedic surgeon regarding right lateral malleolus fracture which currently is splinted. She will work with OT PT tomorrow to determine if stable to go home. Anemia, normocytic -Hgb 10 -Pt reports spot of blood with wiping today in setting of constipation, likely hemorrhoids, recently stopped stool softeners -Repeat H&H in a.m. -F/u B12, folate, iron studies -Iron studies did reveal low saturation. Patient does not know when her previous hemoglobin hematocrit was checked and last was normal in 2017 per records - will evaluate for possible active bleeding. May just be due to hydration given in the ER. - will initiate IV Protonix but patient will have ability to eat -Check serial hemoglobin hematocritAnd has remained stable -Guaiac stool March 24, 2023-currently stable. She does have low iron saturation so we will initiate ferrous sulfate and vitamin C dosing and can be monitored as outpatient . - Current Meds Current Meds: Current Medications Generic Name Dose Route Start Last Admin Trade Name Freq PRN Reason Stop Dose Admin Acetaminophen 1,000 mg 03/23/23 11:18 03/24/23 08:27 Acetaminophen 500 Mg Tablet PO 1,000 mg Q4HR PRN Administration Pain 1 to 4, or Fever Ascorbic Acid 500 mg 03/24/23 08:00 03/24/23 08:28 Ascorbic Acid 500 Mg Tablet PO 500 mg BIDWM GURWINDER Administration Ferrous Sulfate 325 mg 03/24/23 08:00 03/24/23 08:28 Ferrous Sulfate 325 Mg Tablet PO 325 mg BIDWM GURWINDER Administration Levetiracetam 500 mg 03/22/23 23:00 03/24/23 08:27 Levetiracetam 250 Mg Tablet PO 500 mg BID GURWINDER Administration Pantoprazole Sodium 40 mg 03/24/23 08:00 03/24/23 08:29 Pantoprazole 40 Mg Tablet PO 40 mg QDAC GURWINDER Administration Polyethylene Glycol 17 gm 03/23/23 11:00 03/24/23 08:26 Polyethylene Glycol 3350 17 Gm Packet PO 17 gm DAILY GURWINDER Administration Senna 8.6 - 17.2 mg 03/24/23 09:00 03/24/23 08:27 Senna 8.6 Mg Tablet PO 8.6 mg DAILY GURWINDER Administration Sodium Chloride 10 ml 03/23/23 01:00 03/24/23 08:28 Sodium Chloride Flush 0.9% 10 Ml Syringe IVP 10 ml 0100,0900,1700 GURWINDER Administration Tramadol HCl 50 mg 03/23/23 18:36 03/24/23 05:58 Tramadol 50 Mg Tablet PO 50 mg Q4HR PRN Administration Moderate Pain (Level 4-6) - Lab Result Fish Bone Diagrams: 03/24/23 05:45 03/23/23 05:20 - Additional Planning My Orders: My Active Orders 03/23/23 15:39 Telemetry- [RC] Q4HR 03/23/23 18:36 traMADol [Ultram] 50 mg PO Q4HR PRN 03/24/23 08:00 Ascorbic Acid [Vitamin C] 500 mg PO BIDWM Ferrous Sulfate [Feosol] 325 mg PO BIDWM Pantoprazole [Protonix] 40 mg PO QDAC 03/24/23 09:00 Senna [Senokot] 8.6 - 17.2 mg PO DAILY Objective Vital Signs: Vital Signs - 24 hr 03/23/23 03/23/23 03/24/23 15:55 20:13 01:34 Temperature 36.8 C 36.7 C 36.6 C Heart Rate [ 72 70 55 L Brachial] Heart Rate [ Monitoring electrodes] Respiratory 20 20 14 Rate Blood Pressure 108/50 L 112/65 112/62 [Brachial artery] O2 Saturation 95 96 96 03/24/23 03/24/23 03/24/23 05:54 07:52 11:35 Temperature 36.6 C 36.6 C 36.4 C L Heart Rate [ 69 87 Brachial] Heart Rate [ 58 L Monitoring electrodes] Respiratory 14 16 16 Rate Blood Pressure 103/55 L 103/54 L 107/66 [Brachial artery] O2 Saturation 94 95 97 Oxygen O2 Source Room air I&O (Last 24 Hrs): Intake and Output Totals x24h 03/22/23 03/23/23 03/24/23 23:59 23:59 23:59 Intake Total 4973 483 4459 Output Total 1700 375 Balance 1100 -935 885 - Results Results: Laboratory Results WBC 3.5 x10^3/uL (4.8-10.8) L 03/24/23 05:45 RBC 3.11 10^6/uL (4.20-5.40) L 03/24/23 05:45 Hgb 8.5 g/dL (12.0-16.0) L 03/24/23 05:45 Hct 26.8 % (37.0-47.0) L 03/24/23 05:45 MCV 86.2 fL (81.0-99.0) 03/24/23 05:45 MCH 27.3 pg (27.0-31.0) 03/24/23 05:45 MCHC 31.7 g/dL (32.0-36.0) L 03/24/23 05:45 RDW 15.3 % (12.0-15.0) H 03/24/23 05:45 Plt Count 174 10^3/uL (130-450) 03/24/23 05:45 MPV 8.9 fL (7.9-10.8) 03/24/23 05:45 Neut # (Auto) 1.9 10^3/uL (1.5-6.6) 03/24/23 05:45 Lymph # (Auto) 1.1 10^3/uL (1.5-3.5) L 03/24/23 05:45 [place] # (Auto) 0.3 10^3/uL (0.0-1.0) 03/24/23 05:45 Eos # (Auto) 0.2 10^3/uL (0.0-0.7) 03/24/23 05:45 Baso # (Auto) 0.0 10^3/uL (0.0-0.1) 03/24/23 05:45 Absolute Nucleated RBC 0.00 x10^3/uL 03/24/23 05:45 Nucleated RBC % 0.0 /100WBC 03/24/23 05:45 PT 13.2 secs (9.9-12.6) H 03/23/23 07:46 INR 1.2 (0.8-1.2) 03/23/23 07:46 APTT 27.1 secs (24.9-33.3) 03/23/23 07:46 Sodium 140 mmol/L (135-145) 03/23/23 05:20 Potassium 3.7 mmol/L (3.5-5.0) 03/23/23 05:20 Chloride 112 mmol/L (101-111) H 03/23/23 05:20 Carbon Dioxide 22 mmol/L (21-32) 03/23/23 05:20 Anion Gap 6.0 (6-13) 03/23/23 05:20 BUN 16 mg/dL (6-20) 03/23/23 05:20 Creatinine 0.6 mg/dL (0.4-1.0) 03/23/23 05:20 Estimated GFR (MDRD) 96 (>89) 03/23/23 05:20 Glucose 104 mg/dL (70-100) H 03/23/23 05:20 POC Whole Bld Glucose 128 mg/dL (70 - 100) H 03/22/23 19:20 Calcium 9.7 mg/dL (8.5-10.3) 03/23/23 05:20 Magnesium 2.0 mg/dL (1.7-2.8) 03/22/23 17:06 Iron 31 ug/dL (28-170) 03/22/23 17:06 TIBC 263 ug/dL (250-450) 03/22/23 17:06 % Saturation 12 % (20-50) L 03/22/23 17:06 Transferrin 188 mg/dL (192-382) L 03/22/23 17:06 Total Bilirubin 0.8 mg/dL (0.2-1.0) 03/22/23 17:06 AST 22 IU/L (10-42) 03/22/23 17:06 ALT 14 IU/L (10-60) 03/22/23 17:06 Alkaline Phosphatase 101 IU/L (42-121) 03/22/23 17:06 Troponin I High Sens 5.6 ng/L (2.3-14.8) 03/23/23 07:46 Total Protein 6.9 g/dL (6.7-8.2) 03/22/23 17:06 Albumin 4.0 g/dL (3.2-5.5) 03/22/23 17:06 Globulin 2.9 g/dL (2.1-4.2) 03/22/23 17:06 Albumin/Globulin Ratio 1.4 (1.0-2.2) 03/22/23 17:06 Vitamin B12 338 pg/mL (180-914) 03/22/23 17:06 Folate 10.82 ng/mL (5.90 - >24.8) 03/22/23 17:06 Blood Type O POSITIVE 03/23/23 07:46 Blood Type Recheck O POSITIVE 03/23/23 05:20 Antibody Screen NEGATIVE 03/23/23 07:46 ABX Reporting Has patient been on IV antibiotics over the past 48 hours?: No
[2023-03-24] MEDS ORDERED: SENNA 8.6 MG TABLET PO SCH (21:00)
[2023-03-24] MEDS: DOCUSATE SODIUM 100 MG CAPSULE PO SCH (21:23)
[2023-03-25] MEDS: SODIUM CHLORIDE FLUSH 0.9% 10 ML SYRINGE IVP SCH ×3 (01:07→16:55)
[2023-03-25] MEDS: traMADol 50 MG TABLET PO PRN ×2 (01:38→06:42)
[2023-03-25] MEDS: ACETAMINOPHEN 500 MG TABLET PO PRN ×2 (03:17→09:15)
[2023-03-25] MEDS: PANTOPRAZOLE 40 MG TABLET PO SCH (06:27)
[2023-03-25] MEDS: polyethylene glycoL 3350 17 GM PACKET PO SCH (08:42)
[2023-03-25] MEDS: ASCORBIC ACID 500 MG TABLET PO SCH ×2 (08:45→16:54)
[2023-03-25] MEDS: levETIRAcetam 250 MG TABLET PO SCH ×2 (08:45→21:12)
[2023-03-25] MEDS: DOCUSATE SODIUM 100 MG CAPSULE PO SCH ×2 (08:46→21:10)
[2023-03-25] MEDS: SENNA 8.6 MG TABLET PO SCH (08:46)
[2023-03-25] MEDS: FERROUS SULFATE 325 MG TABLET PO SCH ×2 (08:46→16:55)
[2023-03-25] MEDS ORDERED: traMADol 50 MG TABLET PO PRN (10:26)
[2023-03-25] MEDS: ACETAMINOPHEN 500 MG TABLET PO SCH ×3 (13:24→21:12)
--- NOTE | 2023-03-25 16:10 | PROVIDER PROGRESS NOTE ---
Assessment/Plan - Problem List (1) Syncope Qualifiers: Syncope type: unspecified Qualified Code(s): R55 - Syncope and collapse Assessment/Plan: Her syncope occurred at home while on commode, unwitnessed, unknown duration of LOC. She repeated to me the events: She had been dizzy at home after going to PT and "working out hard", so she lied down on the couch but then stood up to go to the bathroom and while on the commode she thinks she must have fallen forward hitting the tile countertop which is just 3 feet in front of the toilet, and then landed on the floor. She then thinks she must have twisted her body and her feet which caused the fracture of the right ankle. Her second episode of syncope was while sitting in a wheelchair in ER, ass ociated with possible shaking, per friend who was at her side, ?seizure, unconscious ~[address] head/neck no acute intracranial abnormalities. MRI with and without contrast of head revealed no acute abnormalities. She has a very large forehead hematoma. EKG showed NSR and unremarkable. practice support specialist has been stable. Since there was concern for a possible seizure, Keppra has been started and seizure precautions ordered Orthostatic blood pressure and pulse with supine, sitting and standing position did not reveal any significant abnormalities, only checked once. Plan: Echocardiogram is still pending, since we have no windows laptop technician here except Saturday through (today is Sat) Because her blood pressures are running "soft", will continue to check orthostatic vital signs. I suspect she was orthostatic from dehydration as the cause of her syncope. I will be recommending outpatient Neuro follow-up to establish if she needs to continue on Keppra. I reviewed my suspicion for volume depletion and this entire plan with the patient, and with her 2 friends (a and couple), who were at the pt's bedside today. Everyone's questions were answered to their satisfaction. (2) Right lateral malleolus fracture Splinted by ER provider Dr Mead and she was recommended to have NWB and outpatient orthopedics follow up PT/OT consults ordered and each has started to see her Plan: Continue pain meds: Will order scheduled Tylenol in order to use less Tramadol, since Tramadol can decrease the seizure threshold Patient is to follow-up with her outpatient orthopedic surgeon regarding prior hip problems on 04/03/23, but will also need F/U of the right lateral malleolus fracture which currently is splinted. She will continue to work with OT PT to determine if and when she is stable to go home. Most likely, home health referral will be sent if she will be going home. The friend (at bedside today) will be staying with her for 2 weeks to help her, as the pt currently lives alone. (3) Anemia, normocytic At admission Hgb 10. All labs were reviewed. Hemoglobin after that has been 8.5-8.9. This may just be hemodilution due to the iv hydration given since being in the ER. Pt reports poss hemorrhoids, recently stopped stool softeners Iron studies did reveal low iron saturation. Patient does not know when her previous hemoglobin hematocrit was checked and last was normal in 2017 per records. Her B12 and Folate levels were normal. Plan: Cont empiric Protonix and cont to hold the daily aspirin that she was on at home Follow serial hemoglobin monitoring, would transfuse if Hgb <7 or if <8 and symptomatic. Guaiac of stool is still pending. The pt said her friend, a doctor, has recommended she undergo a colonoscopy. This would be an outpt W/U. Cont the new ferrous sulfate and vitamin C dosing - Current Meds Current Meds: Current Medications Generic Name Dose Route Start Last Admin Trade Name [place] PRN Reason Stop Dose Admin Acetaminophen 1,000 mg 03/25/23 13:00 03/25/23 13:24 Acetaminophen 500 Mg Tablet PO 1,000 mg QID GURWINDER Administration Ascorbic Acid 500 mg 03/24/23 08:00 03/25/23 08:45 Ascorbic Acid 500 Mg Tablet PO 500 mg BIDWM GURWINDER Administration Docusate Sodium 100 mg 03/24/23 21:00 03/25/23 08:46 Docusate Sodium 100 Mg Capsule PO 100 mg BID GURWINDER Administration Ferrous Sulfate 325 mg 03/24/23 08:00 03/25/23 08:46 Ferrous Sulfate 325 Mg Tablet PO 325 mg BIDWM GURWINDER Administration Levetiracetam 500 mg 03/22/23 23:00 03/25/23 08:45 Levetiracetam 250 Mg Tablet PO 500 mg BID GURIWNDER Administration Pantoprazole Sodium 40 mg 03/24/23 08:00 03/25/23 06:27 Pantoprazole 40 Mg Tablet PO 40 mg QDAC GURWINDER Administration Polyethylene Glycol 17 gm 03/23/23 11:00 03/25/23 08:42 Polyethylene Glycol 3350 17 Gm Packet PO 17 gm DAILY GURWINDER Administration Senna 8.6 - 17.2 mg 03/24/23 09:00 03/25/23 08:46 Senna 8.6 Mg Tablet PO 17.2 mg DAILY GURWINDER Administration Sodium Chloride 10 ml 03/23/23 01:00 03/25/23 08:46 Sodium Chloride Flush 0.9% 10 Ml Syringe IVP 10 ml 0100,0900,1700 GURWINDER Administration - Lab Result Fish Bone Diagrams: 03/24/23 05:45 03/23/23 05:20 - Additional Planning My Orders: My Active Orders 03/25/23 10:26 traMADol [Ultram] 50 mg PO Q6HR PRN 03/25/23 13:00 Acetaminophen [Tylenol] 1,000 mg PO QID 03/25/23 15:58 Orthostatic [Vital Signs - Orthostatic] [RC] DAILY Subjective - Subjective Patient Reports: Feeling Better, Pain (Her main complaint is pain in the broken right ankle, overnight it was burning pain. She has followed directions for nonweightbearing.) Objective Vital Signs: Vital Signs - 24 hr 03/24/23 03/25/23 03/25/23 20:17 00:43 05:36 Temperature 36.6 C 36.9 C 36.7 C Heart Rate [ 63 60 Brachial] Heart Rate [ 66 Monitoring electrodes] Respiratory 20 16 16 Rate Blood Pressure 124/58 L 103/55 L 90/42 L [Brachial artery] Blood Pressure [Sitting] Blood Pressure [Supine] O2 Saturation 97 95 93 03/25/23 03/25/23 03/25/23 05:41 08:36 10:01 Temperature 36.7 C Heart Rate [ 55 L Brachial] Heart Rate [ Monitoring electrodes] Respiratory 17 Rate Blood Pressure 93/43 L 113/53 L [Brachial artery] Blood Pressure 118/61 [Sitting] Blood Pressure 105/48 L [Supine] O2 Saturation 96 03/25/23 12:19 Temperature 36.7 C Heart Rate [ 55 L Brachial] Heart Rate [ Monitoring electrodes] Respiratory 17 Rate Blood Pressure 109/50 L [Brachial artery] Blood Pressure [Sitting] Blood Pressure [Supine] O2 Saturation 95 Oxygen O2 Source Room air I&O (Last 24 Hrs): Intake and Output Totals x24h 03/23/23 03/24/23 03/25/23 23:59 23:59 23:59 Intake Total 765 1720 435 Output Total 1700 2650 1200 Balance -935 -930 -765 General: Alert, Oriented x3 HEENT: Mucous membr. moist/pink, Other (Very large ecchymosis over entire forehead and both upper eyelids and both temples) Neck: Supple, No JVD Neuro: Alert, Non Focal Cardiovascular: Regular rate, No murmurs Respiratory: No respiratory distress, Breath sounds nml Abdomen: Normal bowel sounds, Soft, No tenderness Extremities: No clubbing, No edema, Other (Right foot and lower leg are in a cast then covered in an Yony wrap) - Results Results: Laboratory Results WBC 3.5 x10^3/uL (4.8-10.8) L 03/24/23 05:45 RBC 3.11 10^6/uL (4.20-5.40) L 03/24/23 05:45 Hgb 8.5 g/dL (12.0-16.0) L 03/24/23 05:45 Hct 26.8 % (37.0-47.0) L 03/24/23 05:45 MCV 86.2 fL (81.0-99.0) 03/24/23 05:45 MCH 27.3 pg (27.0-31.0) 03/24/23 05:45 MCHC 31.7 g/dL (32.0-36.0) L 03/24/23 05:45 RDW 15.3 % (12.0-15.0) H 03/24/23 05:45 Plt Count 174 10^3/uL (130-450) 03/24/23 05:45 MPV 8.9 fL (7.9-10.8) 03/24/23 05:45 Neut # (Auto) 1.9 10^3/uL (1.5-6.6) 03/24/23 05:45 Lymph # (Auto) 1.1 10^3/uL (1.5-3.5) L 03/24/23 05:45 [place] # (Auto) 0.3 10^3/uL (0.0-1.0) 03/24/23 05:45 Eos # (Auto) 0.2 10^3/uL (0.0-0.7) 03/24/23 05:45 Baso # (Auto) 0.0 10^3/uL (0.0-0.1) 03/24/23 05:45 Absolute Nucleated RBC 0.00 x10^3/uL 03/24/23 05:45 Nucleated RBC % 0.0 /100WBC 03/24/23 05:45 PT 13.2 secs (9.9-12.6) H 03/23/23 07:46 INR 1.2 (0.8-1.2) 03/23/23 07:46 APTT 27.1 secs (24.9-33.3) 03/23/23 07:46 Sodium 140 mmol/L (135-145) 03/23/23 05:20 Potassium 3.7 mmol/L (3.5-5.0) 03/23/23 05:20 Chloride 112 mmol/L (101-111) H 03/23/23 05:20 Carbon Dioxide 22 mmol/L (21-32) 03/23/23 05:20 Anion Gap 6.0 (6-13) 03/23/23 05:20 BUN 16 mg/dL (6-20) 03/23/23 05:20 Creatinine 0.6 mg/dL (0.4-1.0) 03/23/23 05:20 Estimated GFR (MDRD) 96 (>89) 03/23/23 05:20 Glucose 104 mg/dL (70-100) H 03/23/23 05:20 POC Whole Bld Glucose 128 mg/dL (70 - 100) H 03/22/23 19:20 Calcium 9.7 mg/dL (8.5-10.3) 03/23/23 05:20 Magnesium 2.0 mg/dL (1.7-2.8) 03/22/23 17:06 Iron 31 ug/dL (28-170) 03/22/23 17:06 TIBC 263 ug/dL (250-450) 03/22/23 17:06 % Saturation 12 % (20-50) L 03/22/23 17:06 Transferrin 188 mg/dL (192-382) L 03/22/23 17:06 Total Bilirubin 0.8 mg/dL (0.2-1.0) 03/22/23 17:06 AST 22 IU/L (10-42) 03/22/23 17:06 ALT 14 IU/L (10-60) 03/22/23 17:06 Alkaline Phosphatase 101 IU/L (42-121) 03/22/23 17:06 Troponin I High Sens 5.6 ng/L (2.3-14.8) 03/23/23 07:46 Total Protein 6.9 g/dL (6.7-8.2) 03/22/23 17:06 Albumin 4.0 g/dL (3.2-5.5) 03/22/23 17:06 Globulin 2.9 g/dL (2.1-4.2) 03/22/23 17:06 Albumin/Globulin Ratio 1.4 (1.0-2.2) 03/22/23 17:06 Vitamin B12 338 pg/mL (180-914) 03/22/23 17:06 Folate 10.82 ng/mL (5.90 - >24.8) 03/22/23 17:06 Blood Type O POSITIVE 03/23/23 07:46 Blood Type Recheck O POSITIVE 03/23/23 05:20 Antibody Screen NEGATIVE 03/23/23 07:46
[2023-03-26] MEDS: SODIUM CHLORIDE FLUSH 0.9% 10 ML SYRINGE IVP SCH ×4 (01:00→23:41)
[2023-03-26] MEDS: polyethylene glycoL 3350 17 GM PACKET PO SCH (08:56)
[2023-03-26] MEDS: SENNA 8.6 MG TABLET PO SCH (08:57)
[2023-03-26] MEDS: ASCORBIC ACID 500 MG TABLET PO SCH ×3 (08:57→17:39)
[2023-03-26] MEDS: DOCUSATE SODIUM 100 MG CAPSULE PO SCH ×2 (08:57→22:11)
[2023-03-26] MEDS: FERROUS SULFATE 325 MG TABLET PO SCH ×3 (08:58→17:38)
[2023-03-26] MEDS: levETIRAcetam 250 MG TABLET PO SCH ×2 (08:58→22:13)
[2023-03-26] MEDS: ACETAMINOPHEN 500 MG TABLET PO SCH ×5 (08:58→22:13)
[2023-03-26] MEDS: CALCIUM CARB (OYSTER SHELL) 500 MG TABLET PO SCH (11:13)
[2023-03-26] MEDS: PANTOPRAZOLE 40 MG TABLET PO SCH (11:13)
[2023-03-26] MEDS: CHOLECALCIFEROL 400 UNIT TABLET PO SCH (11:13)
[2023-03-26] MEDS ORDERED: SODIUM CHLORIDE 0.9% 1,000 ML IV SCH (17:00)
[2023-03-26] MEDS ORDERED: LACTULOSE 10 GM /15 ML UDC PO ONE (17:30)
--- NOTE | 2023-03-26 18:08 | PROVIDER PROGRESS NOTE ---
Assessment/Plan - Problem List (1) Syncope Qualifiers: Syncope type: unspecified Qualified Code(s): R55 - Syncope and collapse Assessment/Plan: Her syncope occurred at home while on commode, unwitnessed, unknown duration of LOC. She repeated to me the events: She had been dizzy at home after going to PT and "working out hard", so she lied down on the couch but then stood up to go to the bathroom and while on the commode she thinks she must have fallen forward hitting the tile countertop which is just 3 feet in front of the toilet, and then landed on the floor. She then thinks she must have twisted her body and her feet which caused the fracture of the right ankle. Her second episode of syncope was while sitting in a wheelchair in ER, ass ociated with possible shaking, per friend who was at her side, ?seizure, unconscious ~[address] head/neck no acute intracranial abnormalities. MRI with and without contrast of head revealed no acute abnormalities. She has a very large forehead hematoma. EKG showed NSR and was unremarkable. director toxicology has been stable. Since there was concern for a possible seizure, Keppra has been started and seizure precautions ordered Orthostatic blood pressure and pulse are showing orthostasis (VS were reviewed) Plan: We will give 1 L IV saline today I will be recommending outpatient Neuro follow-up to establish if she needs to continue on Keppra. I reviewed my suspicion for volume depletion again with her and with her friend at bedside (2) Right lateral malleolus fracture Splinted by ER provider Dr Mead and she was recommended to have NWB and outpa tient orthopedics follow up PT/OT consults ordered and each has started to see her Plan: Continue pain meds: Will order scheduled Tylenol in order to use less Tramadol, since Tramadol can decrease the seizure threshold Patient is to follow-up with her outpatient orthopedic surgeon regarding prior hip problems on 04/03/23, but will also need F/U of the right lateral malleolus fracture which currently is splinted. She will continue to work with OT PT to determine if and when she is stable to go home. Most likely, home health referral will be sent if she will be going home. The friend (at bedside today) will be staying with her for 2 weeks to help her, as the pt currently lives alone. (3) Dehydration I reviewed better hydration with the patient: Chicken broth, juices, milk, electrolyte drinks. The patient's friend was also in the room Plan: We will order 1 L IV saline Anticipate discharge tomorrow if no longer orthostatic (4) Anemia, normocytic At admission Hgb 10. All labs were reviewed. Hemoglobin after that has been 8.5-8.9. This may just be hemodilution due to the iv hydration given since being in the ER. Pt reports poss hemorrhoids, recently stopped stool softeners Iron studies did reveal low iron saturation. Patient does not know when her previous hemoglobin hematocrit was checked and last was normal in 2017 per records. Her B12 and Folate levels were normal. Plan: Cont empiric Protonix and cont to hold the daily aspirin that she was on at home Follow serial hemoglobin monitoring, would transfuse if Hgb <7 or if <8 and symptomatic. Guaiac of stool is still pending. The pt said her friend, a doctor, has recommended she undergo a colonoscopy. This would be an outpt W/U. Cont the new ferrous sulfate and vitamin C dosing - Current Meds Current Meds: Current Medications Generic Name Dose Route Start Last Admin Trade Name Freq PRN Reason Stop Dose Admin Acetaminophen 1,000 mg 03/25/23 13:00 03/26/23 17:38 Acetaminophen 500 Mg Tablet PO 1,000 mg QID GURWINDER Administration Ascorbic Acid 500 mg 03/24/23 08:00 03/26/23 17:39 Ascorbic Acid 500 Mg Tablet PO 500 mg BIDWM GURWINDER Administration Calcium Carbonate/Glycine 500 mg 03/26/23 11:00 03/26/23 11:13 Calcium Carb (Oyster Shell) 500 Mg Tablet PO 500 mg DAILY GURWINDER Administration Cholecalciferol 800 unit 03/26/23 11:00 03/26/23 11:13 Cholecalciferol 400 Unit Tablet PO 800 unit DAILY GURWINDER Administration Docusate Sodium 100 mg 03/24/23 21:00 03/26/23 08:57 Docusate Sodium 100 Mg Capsule PO 100 mg BID GURWINDER Administration Ferrous Sulfate 325 mg 03/24/23 08:00 03/26/23 17:38 Ferrous Sulfate 325 Mg Tablet PO 325 mg BIDWM GURWINDER Administration Levetiracetam 500 mg 03/22/23 23:00 03/26/23 08:58 Levetiracetam 250 Mg Tablet PO 500 mg BID GURWINDER Administration Pantoprazole Sodium 40 mg 03/24/23 08:00 03/26/23 11:13 Pantoprazole 40 Mg Tablet PO 40 mg QDAC GURWINDER Administration Polyethylene Glycol 17 gm 03/23/23 11:00 03/26/23 08:56 Polyethylene Glycol 3350 17 Gm Packet PO 17 gm DAILY GURWINDER Administration Senna 8.6 - 17.2 mg 03/24/23 09:00 03/26/23 08:57 Senna 8.6 Mg Tablet PO 17.2 mg DAILY GURWINDER Administration Sodium Chloride 10 ml 03/23/23 01:00 03/26/23 17:39 Sodium Chloride Flush 0.9% 10 Ml Syringe IVP 10 ml 0100,0900,1700 GURWINDER Administration Tramadol HCl 50 mg 03/25/23 10:26 03/26/23 05:37 Tramadol 50 Mg Tablet PO 50 mg Q6HR PRN Administration Severe Pain (Level 7-10) - Lab Result Fish Bone Diagrams: 03/24/23 05:45 03/23/23 05:20 - Additional Planning My Orders: My Active Orders 03/26/23 Home Health Referral [CONS] Routine 03/26/23 11:00 Calcium Carb (Oyster Shell) [Oysco-500] 500 mg PO DAILY Cholecalciferol [Vitamin D3] 800 unit PO DAILY 03/26/23 17:00 Sodium Chloride 0.9% [Normal Saline 0.9%] 1,000 ml IV 83.333 mls/hr Subjective - Subjective Patient Reports: Feeling Better, No Complaints Objective Vital Signs: Vital Signs - 24 hr 03/25/23 03/26/23 03/26/23 20:27 00:00 05:32 Temperature 36.3 C L 36.6 C 36.7 C Heart Rate [ 57 L Brachial] Heart Rate [ 62 67 Monitoring electrodes] Respiratory 16 16 20 Rate Blood Pressure 112/50 L 119/59 L 115/59 L [Brachial artery] O2 Saturation 98 96 96 03/26/23 03/26/23 03/26/23 08:43 12:31 16:35 Temperature 36.6 C 36.7 C 36.7 C Heart Rate [ 69 64 60 Brachial] Heart Rate [ Monitoring electrodes] Respiratory 16 16 16 Rate Blood Pressure 107/53 L 122/67 125/66 [Brachial artery] O2 Saturation 95 95 96 Oxygen O2 Source Room air I&O (Last 24 Hrs): Intake and Output Totals x24h 03/24/23 03/25/23 03/26/23 23:59 23:59 23:59 Intake Total 1720 835 Output Total 2650 1599 1974 Balance -930 -765 -1974 General: Alert, Oriented x3 HEENT: Mucous membr. moist/pink, Other (Large purple bruise of entire forehead, both temporal areas in both upper I will) Neck: Supple, No JVD Neuro: Alert, Non Focal Cardiovascular: Regular rate, No murmurs Respiratory: No respiratory distress, Breath sounds nml Abdomen: Normal bowel sounds, Soft Extremities: No clubbing, No edema, Other (Right lower extremity is in splint and then Yony bandaged on top) - Results Results: Laboratory Results WBC 3.5 x10^3/uL (4.8-10.8) L 03/24/23 05:45 RBC 3.11 10^6/uL (4.20-5.40) L 03/24/23 05:45 Hgb 8.5 g/dL (12.0-16.0) L 03/24/23 05:45 Hct 26.8 % (37.0-47.0) L 03/24/23 05:45 MCV 86.2 fL (81.0-99.0) 03/24/23 05:45 MCH 27.3 pg (27.0-31.0) 03/24/23 05:45 MCHC 31.7 g/dL (32.0-36.0) L 03/24/23 05:45 RDW 15.3 % (12.0-15.0) H 03/24/23 05:45 Plt Count 174 10^3/uL (130-450) 03/24/23 05:45 MPV 8.9 fL (7.9-10.8) 03/24/23 05:45 Neut # (Auto) 1.9 10^3/uL (1.5-6.6) 03/24/23 05:45 Lymph # (Auto) 1.1 10^3/uL (1.5-3.5) L 03/24/23 05:45 [place] # (Auto) 0.3 10^3/uL (0.0-1.0) 03/24/23 05:45 Eos # (Auto) 0.2 10^3/uL (0.0-0.7) 03/24/23 05:45 Baso # (Auto) 0.0 10^3/uL (0.0-0.1) 03/24/23 05:45 Absolute Nucleated RBC 0.00 x10^3/uL 03/24/23 05:45 Nucleated RBC % 0.0 /100WBC 03/24/23 05:45 PT 13.2 secs (9.9-12.6) H 03/23/23 07:46 INR 1.2 (0.8-1.2) 03/23/23 07:46 APTT 27.1 secs (24.9-33.3) 03/23/23 07:46 Sodium 140 mmol/L (135-145) 03/23/23 05:20 Potassium 3.7 mmol/L (3.5-5.0) 03/23/23 05:20 Chloride 112 mmol/L (101-111) H 03/23/23 05:20 Carbon Dioxide 22 mmol/L (21-32) 03/23/23 05:20 Anion Gap 6.0 (6-13) 03/23/23 05:20 BUN 16 mg/dL (6-20) 03/23/23 05:20 Creatinine 0.6 mg/dL (0.4-1.0) 03/23/23 05:20 Estimated GFR (MDRD) 96 (>89) 03/23/23 05:20 Glucose 104 mg/dL (70-100) H 03/23/23 05:20 POC Whole Bld Glucose 128 mg/dL (70 - 100) H 03/22/23 19:20 Calcium 9.7 mg/dL (8.5-10.3) 03/23/23 05:20 Magnesium 2.0 mg/dL (1.7-2.8) 03/22/23 17:06 Iron 31 ug/dL (28-170) 03/22/23 17:06 TIBC 263 ug/dL (250-450) 03/22/23 17:06 % Saturation 12 % (20-50) L 03/22/23 17:06 Transferrin 188 mg/dL (192-382) L 03/22/23 17:06 Total Bilirubin 0.8 mg/dL (0.2-1.0) 03/22/23 17:06 AST 22 IU/L (10-42) 03/22/23 17:06 ALT 14 IU/L (10-60) 03/22/23 17:06 Alkaline Phosphatase 101 IU/L (42-121) 03/22/23 17:06 Troponin I High Sens 5.6 ng/L (2.3-14.8) 03/23/23 07:46 Total Protein 6.9 g/dL (6.7-8.2) 03/22/23 17:06 Albumin 4.0 g/dL (3.2-5.5) 03/22/23 17:06 Globulin 2.9 g/dL (2.1-4.2) 03/22/23 17:06 Albumin/Globulin Ratio 1.4 (1.0-2.2) 03/22/23 17:06 Vitamin B12 338 pg/mL (180-914) 03/22/23 17:06 Folate 10.82 ng/mL (5.90 - >24.8) 03/22/23 17:06 Blood Type O POSITIVE 03/23/23 07:46 Blood Type Recheck O POSITIVE 03/23/23 05:20 Antibody Screen NEGATIVE 03/23/23 07:46
[2023-03-27] MEDS: PANTOPRAZOLE 40 MG TABLET PO SCH (05:56)
[2023-03-27] MEDS: polyethylene glycoL 3350 17 GM PACKET PO SCH (08:32)
[2023-03-27] MEDS: ACETAMINOPHEN 500 MG TABLET PO SCH ×2 (08:36→12:44)
[2023-03-27] MEDS: SODIUM CHLORIDE FLUSH 0.9% 10 ML SYRINGE IVP SCH (08:36)
[2023-03-27] MEDS: ASCORBIC ACID 500 MG TABLET PO SCH (08:38)
[2023-03-27] MEDS: CHOLECALCIFEROL 400 UNIT TABLET PO SCH (08:38)
[2023-03-27] MEDS: levETIRAcetam 250 MG TABLET PO SCH (08:38)
[2023-03-27] MEDS: CALCIUM CARB (OYSTER SHELL) 500 MG TABLET PO SCH (08:38)
[2023-03-27] MEDS: FERROUS SULFATE 325 MG TABLET PO SCH (08:38)
[2023-03-27] MEDS: DOCUSATE SODIUM 100 MG CAPSULE PO SCH (08:39)
--- NOTE | 2023-03-27 08:47 | Discharge Plan ---
Discharge Plan Problem Reviewed?: Yes Disposition: 06 Home Health Service Condition: Stable Prescriptions: Docusate Sodium 100Mg Capsule [Colace 100Mg Capsule] 100 mg PO DAILY #30 cap Ferrous Sulfate [Feosol] 325 mg PO BIDWM #60 tab levETIRAcetam [Keppra] 500 mg PO BID #60 tab Calcium Carb (Oyster Shell) [Oysco-500] 500 mg PO DAILY #30 tab traMADol [Ultram] 50 mg PO TID #10 tab Diet: Regular (Please add salt to your food liberally) Activity Restrictions: No weight bearing R foot Shower Restrictions: No Driving Restrictions: Yes Assistance Devices: Walker, Crutches Weight Bearing: No Weight (No weightbearing on right foot or right toes.) Instruction Topics: Fx Ankle, Hypotension Dc, ED Head Injury Closed, ED Hypotension Orthostatic, ED Hypotension All Causes Health Concerns: You were hospitalized after fainting which has caused a large head bruise and you suffered a broken right ankle. We found the cause to be orthostatic hypotension, which means that your body was volume depleted (dehydrated). We discussed how you should stay better hydrated, by drinking electrolyte- containing fluids, and you are allowed to salt your food. The right ankle was put into a splint. You need follow-up with an air defense specialist for the ankle. The recommendation is to not to put any weight on the right foot or right toes whatsoever. Please use a walker or crutches for ambulation or a wheelchair. I recommend that you take the Tylenol on a scheduled basis, so that you do not have to use many narcotics for breakthrough pain. But a prescriptions for Tramadol was electronically sent to your pharmacy. A referral was sent for a Home Health agency to supply you with a nurse (to check your vital signs), a bath aide, a physical therapist and occupational therapist, to do rehab in your house before resuming outpatient PT and OT. You may resume any pre-Hospital medications. In addition, you have been prescribed a daily calcium supplement, because of your brittle bones and history of many fractures. The narcotic medicine and iron replacement can cause constipation, therefore a prescription for a stool softener was also sent. A stool sample was never tested here, to check if it contains blood. Therefore, the work-up of your chronic anemia needs to continue as an outpatient, to be handled by your primary care provider. You have been started on twice a day iron replacement tablets. The prescription was also electronically sent to your pharmacy. Finally, you are on new medication called Keppra, for possible seizures. You need to have an EEG and a Neurology consultation to determine if you need to stay on Keppra. Plan of Treatment: As above. Care Goals: Improvement in symptoms and stabilization are the goals. Assessment: The patient understands and is agreeable with the plan . Additional Instructions or Follow Up instructions: If you have new or worsening symptoms, call your primary care provider for advice, or come to the ER No Smoking: If you smoke, Please STOP! Call for help. Follow-up with: WEN MCCRACKEN ARNP [Primary Care Provider] -
[2023-03-27] MEDS: SENNA 8.6 MG TABLET PO SCH (09:17)
--- NOTE | 2023-03-27 11:03 | DISCHARGE SUMMARY ---
Discharge Summary Admit Date: 03/22/23 Discharge Date: 03/27/23 Discharging Provider: Cristal Rush MD Primary Care Provider: Melissa Clement NP Condition at Discharge: Stable Discharge Disposition: [facility] History of Present Illness: Mrs Tay is a 77 yo F with hx hip and knee replacements, recent R hip revision Feb 18, 2023. Uses walker. No other chronic medical problems, takes low dose ASA twice daily after hip revision, no other home medications. Presents to ER for further evaluation of syncopal episode. Pt reports she felt weak and dizzy this afternoon, went to bathroom for BM, passed out while on the toilet and hit her forehead. Unwitnessed, unsure how long she was unconscious for at that time. She was stuck under the cabinet and had a hard time getting out, which is how she thinks she injured her ankle. While in ER she had an observed episode of syncope, possible seizure, her eyes rolled back, shook, passed out, regained consciousness within a couple of minutes. Patient states she felt completely disoriented afterwards briefly. ED work up has revealed a Right lateral malleolus fracture. This has been splinted by the ER provider. Currently no complaints except that she is feeling very cold. Denies abd pain, n/v. Noticed a small spot of blood when wiping after BM today, states she was prescribed stool softener post op but just stopped taking it due to runny stools. Denies blood in stool or in toilet bowl. Denies hematuria. She took oxycodone for 2 days post op, never took the tramadol that was prescribed. No alcohol use. She will be placed in Observation for evaluation of syncope vs seizure . - HOSPITAL COURSE Hospital Course: (1) Syncope Her syncope occurred at home: She had been dizzy at home after going to PT and "working out hard", so she lied down on the couch but then stood up to go to the bathroom and while on the commode she thinks she must have fallen forward hitting the tile countertop which is just 3 feet in front of the toilet, and t hen landed on the floor. She then thinks she must have gotten stuck under the countertop, twisted her body and her feet which caused the fracture of the right ankle. Her second episode of syncope was while sitting in a wheelchair in ER, associated with possible shaking, per friend who was at her side. She was started empirically on Keppra. Her CT head/neck showed no acute intracranial abnormalities. MRI with and without contrast of head revealed no acute abnormalities. EKG, Telemetry and her Echo were unremarkable. She did develop a very large forehead hematoma. Orthostatic blood pressure and pulse did reveal orthostasis. She received IV saline. She was discharged on new Keppra, and she needs a Neurology eval and EEG, to determine if the Keppra needs to be continued. (2) Orthostatic hyptension On several measurements she had systolic drop in BP and excessive heart rate. I reviewed use of salt and better hydration with the patient and patient's friend in the room, who will be staying with her for 2 weeks. (3) Right lateral malleolus fracture The R ankle was splinted by ER provider Dr Mead and she was advised outpatient Orthopedics follow up. PT/OT worked with her, teaching NWB of the R foot or toes. She needed scheduled Tylenol in order to use less Tramadol, since Tramadol can decrease the seizure threshold, for pain control. Home Health was ordered. She was discharged with prescriptions for Tramadol prn, Colace daily, calcium suppl and advised to continue her vitamin D and Tylenol. (4) Anemia, normocytic At admission, Hgb was 10 then plateaued at 8.5-8.9 possibly from hemodilution. Her B12 and Folate levels were normal. She was started on Iron supplements due to low Iron stores. A guaic of stool was ordered but none was sent to lab. The p t said her friend, a doctor, has recommended she undergo a colonoscopy. This would be an outpt W/U. - ALLERGIES Allergies/Adverse Reactions: Allergies Allergy/AdvReac Type Severity Reaction Status Date / Time No Known Drug Allergies Allergy Verified 07/07/17 09:10 - MEDICATIONS Home Medications: Ambulatory Orders Medication Instructions Recorded Confirmed Acetaminophen [Acetaminophen Extra 1,000 mg PO BID 03/23/23 03/23/23 Strength] Aspirin EC [Ecotrin] 81 mg PO BID 03/23/23 03/23/23 Biotin 2,000 mcg PO DAILY 03/23/23 03/23/23 Cholecalciferol (Vitamin D3) 100 mcg PO DAILY 03/23/23 03/23/23 [Vitamin D3] Cyanocobalamin (Vitamin B-12) 500 mcg PO DAILY 03/23/23 03/23/23 [Vitamin B-12] Calcium Carb (Oyster Shell) 500 mg PO DAILY #30 tab 03/27/23 [Oysco-500] Docusate Sodium 100Mg Capsule 100 mg PO DAILY #30 cap 03/27/23 [Colace 100Mg Capsule] Ferrous Sulfate [Feosol] 325 mg PO BIDWM #60 tab 03/27/23 levETIRAcetam [Keppra] 500 mg PO BID #60 tab 03/27/23 traMADol [Ultram] 50 mg PO TID #10 tab 03/27/23 - PHYSICAL EXAM AT DISCHARGE General Appearance: positive: No acute distress, Alert Eyes Bilateral: positive: Other (Bruised upper eyelids) ENT: positive: No signs of dehydration, Other (Bruised forehead) Neck: positive: Nml inspection, No JVD Respiratory: positive: No respiratory distress, Breath sounds nml Cardiovascular: positive: Regular rate & rhythm, No murmur Abdomen: positive: Non-tender, Nml bowel sounds, No distention Skin: positive: Warm, Dry Extremities: positive: No pedal edema, Other (R lower leg in a splint, wrapped in Acebandage.) Neurologic/Psychiatric: positive: Oriented x3, Motor nml - LABS Result Diagrams: 03/24/23 05:45 03/23/23 05:20 - DIAGNOSTIC IMAGING Diagnostic Imaging Results: Final report reviewed - FOLLOW UP Follow Up: See PCP in the next 1 to 2 weeks. Patient needs a referral to Neurology. Patient needs to see her Orthopedist in the next few weeks as well. - TIME SPENT Time Spent in Discharge (Minutes): 45
[2023-03-27 11:34] VITALS: BP 116/62
== END 2023-03-27 13:30 | disposition home health service (06) | DRG 312 ==
LOC: ED 16:44 → MS2 21:04 → OBSVTOIN 03-23 10:10
PROVIDERS: ADMIT Student in an Organized Health Care Education/Training Program; ATTEND Internal Medicine
DX: R55 Syncope and collapse (principal); S09.90XA Unspecified injury of head, initial encounter; I95.1 Orthostatic hypotension; E86.0 Dehydration; S82.61XA Displaced fracture of lateral malleolus of right fibula, initial encounter for closed fracture; S00.83XA Contusion of other part of head, initial encounter; Z79.82 Long term (current) use of aspirin; W18.12XA Fall from or off toilet with subsequent striking against object, initial encounter; D64.9 Anemia, unspecified; R56.9 Unspecified convulsions; K59.00 Constipation, unspecified; Y93.89 Activity, other specified; Y92.002 Bathroom of unspecified non-institutional (private) residence as the place of occurrence of the external cause
CPT/HCPCS: 29515; 36415; 70450; 70553; 72125; 73610; 80048; 80053; 82272; 82607; 82746; 83540; 83735; 84466; 84484; 85025; 85610; 85730; 86850; 86900; 86901; 93005; 93306; 96361; 96374; 97162; 97166; 97530; 99285; A9270; A9585; G0378; 85014; 85018

== ENCOUNTER 2023-10-04 10:15 | Outpatient (CLI) | payer MEDICARE, OTHER | END 2023-10-04 23:59 | disposition left against medical advice (07) | LOC: EMS 10:15 | DX: M25.552 Pain in left hip (principal); R29.898 Other symptoms and signs involving the musculoskeletal system ==

== ENCOUNTER 2024-01-16 07:56 | Outpatient (CLI) | payer MEDICARE, OTHER | END 2024-01-16 07:57 | disposition critical access hospital (66) | LOC: EMS 07:56 | DX: R55 Syncope and collapse (principal); R11.2 Nausea with vomiting, unspecified; S01.511A Laceration without foreign body of lip, initial encounter; S20.319A Abrasion of unspecified front wall of thorax, initial encounter; W18.39XA Other fall on same level, initial encounter; Y92.019 Unspecified place in single-family (private) house as the place of occurrence of the external cause | CPT/HCPCS: A0425; A0427 ==

== ENCOUNTER 2024-01-16 08:34 | Emergency (ER) | payer MEDICARE, OTHER ==
[2024-01-16] MEDS: ONDANSETRON 4 MG/2 ML VIAL IVP STA (08:51)
[2024-01-16] MEDS: TETANUS/DIPHTHERIA/PERTUSSIS 0.5 ML SYRINGE IM ONE (08:52)
[2024-01-16] MEDS: LIDOCAINE-EPINEPH-TETRACAINE 3 ML SYRINGE TOP STA (09:12)
--- NOTE | 2024-01-16 09:12 | XRAY Report ---
PROCEDURE: Chest 1V INDICATIONS: fall/chest wall abrasion TECHNIQUE: One view of the chest was acquired. COMPARISON: None. FINDINGS: Surgical changes and devices: Calcified mammoplasties. Lungs and pleura: No pleural effusions or pneumothorax. Lungs are clear. Mediastinum: Mediastinal contours appear normal. Heart size is normal. Bones and chest wall: No suspicious bony lesions. Overlying soft tissues appear unremarkable. IMPRESSION: No acute cardiopulmonary process. Reviewed by: Jimbo Álvarez MD on 01/16/2024 9:11 AM PDT Approved by: Jimbo Álvarez MD on 01/16/2024 9:11 AM PDT Station ID: [id number]
[2024-01-16 09:27] LABS: BASOPHILS % (AUTO) 0.5 %; EOSINOPHILS % (AUTO) 0.1 %; HCT - HEMATOCRIT 40.1 % (37.0-47.0); HGB - HEMOGLOBIN 12.8 g/dL (12.0-16.0); LYMPHOCYTES # (AUTO) 0.5 10^3/uL (1.5-3.5); LYMPHOCYTES % (AUTO) 5.3 %; MEAN CORPUSCULAR HEMOGLOBIN 28.8 pg (27.0-31.0); MEAN CORPUSCULAR HGB CONC 31.9 g/dL (32.0-36.0); MEAN CORPUSCULAR VOLUME 90.3 fL (81.0-99.0); MEAN PLATELET VOLUME 10.1 fL (7.9-10.8); MONOCYTES # (AUTO) 0.2 10^3/uL (0.0-1.0); MONOCYTES % (AUTO) 2.1 %; NEUTROPHILS # (AUTO) 8.1 10^3/uL (1.5-6.6); NEUTROPHILS % (AUTO) 91.8 %; PLT - PLATELET COUNT 180 10^3/uL (130-450); RED BLOOD COUNT 4.44 10^6/uL (4.20-5.40); RED CELL DISTRIBUTION WIDTH 13.3 % (12.0-15.0); WHITE BLOOD COUNT 8.9 x10^3/uL (4.8-10.8)
--- NOTE | 2024-01-16 09:40 | ED Physician Documentation ---
PD HPI SYNCOPE - Stated complaint Stated Complaint: SYNCOPE/GLF - Chief complaint Chief Complaint: General - History obtained from History obtained from: Patient, EMS - Additional information Additional information: Patient is an 78-year-old female presenting for evaluation of a syncopal episode. Patient states that since last night she has been feeling unwell with some nausea. This morning as she went to the bathroom because she was feeling nauseous and had a syncopal episode. She did strike her head. She has had several episodes of emesis this morning including some streaks of blood. She d oes not take any NSAIDs and denies blood thinner use. She denies chest pain or shortness of air. She is unsure of her last tetanus. Denies black or bloody stools.Has never seen a gluer and wedger. Denies fever. Review of Systems Constitutional: denies: Fever Cardiac: denies: Chest pain / pressure Respiratory: denies: Dyspnea GI: reports: Nausea, Vomiting. 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 HEENT: Cataracts - Present Medications Home Medications: Ambulatory Orders Medication Instructions Recorded Confirmed Biotin 2,000 mcg PO DAILY 03/23/23 01/16/24 Cholecalciferol (Vitamin D3) 100 mcg PO DAILY 03/23/23 01/16/24 [Vitamin D3] Cyanocobalamin (Vitamin B-12) 500 mcg PO DAILY 03/23/23 01/16/24 [Vitamin B-12] Calcium Carb (Oyster Shell) 500 mg PO DAILY #30 tab 03/27/23 01/16/24 [Oysco-500] Docusate Sodium 100Mg Capsule 100 mg PO DAILY #30 cap 03/27/23 01/16/24 [Colace 100Mg Capsule] Ferrous Sulfate [Feosol] 325 mg PO BIDWM #60 tab 03/27/23 01/16/24 - Allergies Allergies/Adverse Reactions: Allergies Allergy/AdvReac Type Severity Reaction Status Date / Time No Known Drug Allergies Allergy Verified 07/07/17 09:10 - Social History Does the pt smoke?: No Smoking Status: Never smoker Does the pt drink ETOH?: Yes Does the pt have substance abuse?: No - Immunizations Immunizations are current?: Yes - POLST Patient has POLST: No PD ED PE NORMAL - General General: Alert and oriented X 3, No acute distress, Well developed/nourished - HEENT HEENT: PERRL, EOMI, Moist mucous membranes, Dentition benign, Other (Right lower lip laceration through vermilion border, contusions to forehead, chin) - Neck Neck: Supple, no meningeal sign, No bony TTP - Cardiac Cardiac: RRR, Strong equal pulses - Respiratory Respiratory: No respiratory distress, Clear bilaterally - Abdomen Abdomen: Normal bowel sounds, Soft, Non distended, Other (Mild epigastric tenderness) - Derm Derm: Warm and dry - Extremities Extremities: No deformity - Neuro Neuro: Alert and oriented X 3, machine ironer 2-12 intact, No motor deficit, No sensory deficit, Normal speech Eye Opening: Spontaneous Motor: Obeys Commands Verbal: Oriented GCS Score: 15 Results - Vitals Vitals: Vital Signs - 24 hr 01/16/24 01/16/24 01/16/24 08:38 09:00 10:07 Temperature 36.5 C Heart Rate 72 64 65 Respiratory 15 18 19 Rate Blood Pressure 127/95 H 131/64 H 143/60 H O2 Saturation 98 99 97 01/16/24 11:06 Temperature Heart Rate 56 L Respiratory 14 Rate Blood Pressure 147/61 H O2 Saturation 100 Oxygen O2 Source Room air - EKG (time done) 0851 EKG releavant findings:: EKG personally interpreted by author of this note. Relevant findings are: Rate 66, normal sinus rhythm, no STEMI, QTc 434 0939 EKG releavant findings:: EKG personally interpreted by author of this note. Relevant findings are: Rate 62, normal sinus rhythm, no STEMI, QTc 455 - Labs Labs: Laboratory Tests 01/16/24 01/16/24 01/16/24 09:15 09:15 09:15 WBC 8.9 RBC 4.44 Hgb 12.8 Hct 40.1 MCV 90.3 MCH 28.8 MCHC 31.9 L RDW 13.3 Plt Count 180 MPV 10.1 Neut # (Auto) 8.1 H Lymph # (Auto) 0.5 L Knox # (Auto) 0.2 Eos # (Auto) 0.0 Baso # (Auto) 0.0 Absolute Nucleated RBC 0.00 Nucleated RBC % 0.0 Sodium 138 Potassium 3.6 Chloride 108 Carbon Dioxide 23 Anion Gap 7.0 BUN 15 Creatinine 0.7 Estimated GFR (MDRD) 81 L Glucose 144 H Calcium 10.4 H Magnesium 1.8 Total Bilirubin 0.6 AST 16 ALT 14 Alkaline Phosphatase 99 Troponin I High Sens < 2.3 L Total Protein 6.1 L Albumin 4.1 Globulin 2.0 L Albumin/Globulin Ratio 2.1 Lipase 10 L TSH 01/16/24 09:15 WBC RBC Hgb Hct MCV MCH MCHC RDW Plt Count MPV Neut # (Auto) Lymph # (Auto) Knox # (Auto) Eos # (Auto) Baso # (Auto) Absolute Nucleated RBC Nucleated RBC % Sodium Potassium Chloride Carbon Dioxide Anion Gap BUN Creatinine Estimated GFR (MDRD) Glucose Calcium Magnesium Total Bilirubin AST ALT Alkaline Phosphatase Troponin I High Sens Total Protein Albumin Globulin Albumin/Globulin Ratio Lipase TSH 2.10 PD Medical Decision Making - ED course Complexity details: reviewed results, re-evaluated patient, d/w patient, d/w family ED course: Patient is an 78-year-old female presenting for evaluation after syncopal episode. She did sustain a head injury with bruising noted to the head and face. She does have a lower lip laceration. Initial EKG demonstrates a sinus rhythm. Patient denies chest pain or shortness of air. She has been having nausea and vomiting this morning. Reports some blood streaking in the emesis. Does not take any blood thinners. Denies NSAID use, alcohol use. Labs including CBC, chemistries, troponin were obtained and reviewed.Chest x-ray without any significant findings. Let was applied to lip laceration as it did cross the vermilion border with plans for repair. However prior to this and prior to patient going to CT scan she did have another syncopal episode with a 10-second pause on the monitor. Given this we did hold on CT scans for a bit of time as we worked on transfer. Repeat EKG showed sinus rhythm. We were ultimately able to get her to CT safely with the nurse at the bedside. CT head, C-spine, maxillofacial were obtained and without significant findings. Discussed with cardiology at [facility] who graciously agrees to accept the patient in transfer and patient is transferred ER to ER. Patient without any further syncopal events while in the emergency department. Patient was transported by air given need for emergent pacemaker. 0937 - Called emergently to evaluate the patient again at the bedside. She was speaking with her daughter and then went unresponsive and per the daughter the alarm started beeping on the monitor. When I arrived in the room patient is again awake and cannot recall what just happened. Have asked for a stat repeat EKG and fingerstick glucose. On review of the playground monitor it appears that she was in sinus rhythm and then bradycardia down and had a 10-second pause. CTs have been ordered but I do not want patient taken out of the department at this time. Pacer pads have been applied. I have spoken with patient and her daughter regarding advance directives and that she would like attempts at CPR, Electrical cardioversion if indicated and Intubation if needed.She would not want prolonged efforts but would want an attempt at resuscitation.She has never seen a gluer and wedger. She understands that we are going to start working on transfer as she needs a facility with cardiology capabilities. 1004 - D/W Dr. Toure (Cardiology, [facility]) - Agrees that patient should be transferred and would like her to come ER to ER so that she can be evaluated to go to the [facility] For implantation of a permanent pacemaker. He understands I am still waiting on some lab testing including electrolytes but her high- sensitivity troponin is negative. Request we add on a TSH which I have added on. 1017 - Per [facility] transfer center, Dr. Holland in the emergency department will accept the patient. - Critical Care Time(min): 43 Time Includes: Direct patient care, Review records, Reassess patient Data interpretation: Labs, CXR Departure - Departure Disposition: 02 Transfer Acute Care Hosp Clinical Impression: Sick sinus syndrome, Syncope, Head injuries, Facial contusion, Nausea & vomiting Condition: Critical Forms: PCP List Discharge Date/Time: 01/16/24 10:59
[2024-01-16 09:42] LABS: TROPONIN I HIGH SENSITIVITY < 2.3 ng/L (2.3-14.8)
[2024-01-16 10:27] LABS: ALBUMIN 4.1 g/dL (3.2-5.5); ALBUMIN/GLOBULIN RATIO 2.1 (1.0-2.2); ALKALINE PHOSPHATASE 99 IU/L (42-121); ALT ALANINE AMINOTRANSFERASE 14 IU/L (10-60); AST ASPARTATE AMINOTRANSFERASE 16 IU/L (10-42); BILIRUBIN,TOTAL 0.6 mg/dL (0.2-1.0); BUN - BLOOD UREA NITROGEN 15 mg/dL (6-20); CALCIUM 10.4 mg/dL (8.5-10.3); CARBON DIOXIDE - CO2 23 mmol/L (21-32); CHLORIDE 108 mmol/L (101-111); CREATININE 0.7 mg/dL (0.6-1.3); GFR - MDRD 81 (>89); GLUCOSE 144 mg/dL (74-104); LIPASE 10 U/L (11-82); POTASSIUM 3.6 mmol/L (3.5-4.5); SODIUM 138 mmol/L (135-145); TOTAL PROTEIN 6.1 g/dL (6.4-8.9)
--- NOTE | 2024-01-16 10:45 | CT Report ---
PROCEDURE: Head WO INDICATIONS: fall/head injury/LOC TECHNIQUE: Noncontrast 4.5 mm thick angled axial sections acquired from the foramen magnum to the vertex. For r adiation dose reduction, the following was used: automated exposure control, adjustment of mA and/or kV according to patient size. COMPARISON: CT head dated 03/22/2023. FINDINGS: Image quality: Excellent. CSF spaces: Basal cisterns are patent. No extra-axial fluid collections. Ventricles are normal in size and shape. Brain: No midline shift. No intracranial masses or hemorrhage. Morgan-white matter interface is norm al. Skull and face: Calvarium and visualized facial bones are intact, without suspicious lesions. Sinuses: Visualized sinuses and mastoids are clear. IMPRESSION: No acute intracranial pathology. Reviewed by: Jimbo Álvarez MD on 01/16/2024 10:44 AM PDT Approved by: Jimbo Álvarez MD on 01/16/2024 10:44 AM PDT Station ID: [id number]
--- NOTE | 2024-01-16 10:47 | CT Report ---
PROCEDURE: Cervical Spine WO INDICATIONS: fall/facial contusions/LOC TECHNIQUE: Noncontrast 3 mm thick sections acquired from the skull base to the T4 level. Sagittal and coronal r eformats were then constructed. For radiation dose reduction, the following was used: automated exp osure control, adjustment of mA and/or kV according to patient size. COMPARISON: 03/22/2023. FINDINGS: Image quality: Excellent. Bones: No fractures or dislocations. Visualized superior ribs are intact. Diffuse cervical spondyl itic change. Unchanged alignment. Degenerative anterolisthesis of C4 on C5. Multilevel facet arthropa thy. Multilevel uncovertebral joint hypertrophy. Soft tissues: Prevertebral soft tissues are normal in thickness. No paravertebral hematomas. No ap ical pneumothoraces. IMPRESSION: 1. No acute cervical fracture or dislocation. 2. Cervical spondylosis. Reviewed by: Jimbo Álvarez MD on 01/16/2024 10:46 AM PDT Approved by: Jimbo Álvarez MD on 01/16/2024 10:46 AM PDT Station ID: [id number]
--- NOTE | 2024-01-16 10:49 | CT Report ---
PROCEDURE: Maxillofacial WO INDICATIONS: fall/facial contusions/LOC TECHNIQUE: Noncontrast 1.5 mm thick axial images acquired from the mandible through the frontal sinuses, with co madhuri and sagittal reformatting. For radiation dose reduction, the following was used: automated ex posure control, adjustment of mA and/or kV according to patient size. COMPARISON: None. FINDINGS: Image quality: Excellent. Bones and teeth: Orbital franco are intact. Sinus franco show no fracture or deformity. Nasal bones and septum are intact. Visualized portions of the mandible demonstrate no fractures or subluxation. Zygomatic arches are intact. Pterygoid plates are intact. Visualized portions of the skull base an d auditory canals are intact. Sinuses: Paranasal sinuses are aerated, without fluid levels, mucosal thickening, or mucoceles. Mas toid air cells are aerated. Soft tissues: No edema, masses, or fluid collections. No enlarged lymph nodes. No soft tissue lace rations or debris. Vascular: Visualized vascular structures appear normal in the absence of contrast. Bony vascular fo ramina and canals are intact. IMPRESSION: No displaced facial bone fracture or mandibular fracture. Reviewed by: Jimbo Álvarez MD on 01/16/2024 10:47 AM PDT Approved by: Jimbo Álvarez MD on 01/16/2024 10:47 AM PDT Station ID: [id number]
[2024-01-16 11:14] VITALS: BP 147/61; O2SAT 100
== END 2024-01-16 10:59 | disposition short-term general hospital (02) ==
LOC: EDUNIT# → ED 08:34
DX: I49.5 Sick sinus syndrome (principal); R55 Syncope and collapse; S09.90XA Unspecified injury of head, initial encounter; S01.511A Laceration without foreign body of lip, initial encounter; W18.30XA Fall on same level, unspecified, initial encounter; R11.2 Nausea with vomiting, unspecified; Z79.899 Other long term (current) drug therapy
CPT/HCPCS: 36415; 80053; 83690; 83735; 84443; 84484; 85025; 90471; 93005; 96374; 99291